=== PATIENT | female | born 1960 | race Caucasian/White ===

== ENCOUNTER 2018-12-13 14:40 | Inpatient (IN) ==
--- NOTE | 2018-12-13 14:45 | Emergency Department Note ---
Disposition Clinical Impression: Hyponatremia, Seizure, Alcoholism Breast cancer Qualifiers: Breast location: unspecified site of breast Estrogen receptor status: unspe cified Patient sex: female Laterality: unspecified laterality Qualified Code(s): C50.919 - Malignant neoplasm of unspecified site of unspecified female breast Disposition: Admitted As Inpatient Condition: Critical Forms: ED Satisfaction Letter Time of Disposition: 17:59 General Adult HPI - General Stated complaint: Weakness Time Seen by Provider: 12/13/18 14:43 Source: patient, family, EMS Mode of arrival: EMS Limitations: no limitations Nursing Notes Reviewed: Yes Vital Signs Reviewed: Yes - History of Present Illness HPI Narrative: 58F that is undergoing radiation for breast cancer that was last known well at 0400 this morning when her saw her, and now presents with possible seizure activity. Pt is talking. Pt was taken emergently to CT at 1445. - Related Data Home Medications Medication Instructions Recorded Confirmed Unable To Obtain [Unable to Obtain] 12/13/18 12/13/18 Allergies Allergy/AdvReac Type Severity Reaction Status Date / Time acetaminophen [From Vicodin] Allergy Rash Verified 12/13/18 19:16 codeine Allergy Rash Verified 12/13/18 19:16 hydrocodone [From Vicodin] Allergy Rash Verified 12/13/18 19:16 Limitations: ROS unobtainable due to patients medical condition Past Medical History - Past Medical History Medical history: Reports: cancer Surgical history: Reports: breast surgery - Social History Alcohol use: Reports: heavy Physical Exam General: A&O x 1 - to self only. Well developed, well nourished. Seems confused. Head: atraumatic, normocephalic. ENT: No conjunctival injection, no scleral icterus. PERRLA. EOMI. Oropharynx non- erythematous. mucous membranes tacky. Neuro: BUE/BLE Str 5/5. Pt cannot participate in neuro exam. Pulm: Lungs CTAB A/P. No wheezes, rales, ronchi. Cardio: RRR no m/r/g. Chest not tender to palpation. Abd: Soft, non-distended. Normoactive bowel sounds. Non-tender to palpation. No guarding. Non rigid. Extremities: Radial pulses 2+ duong, dorsalis pedis/posterior tibialis 2+ duong. No LE edema. No cyanosis, clubbing. Skin: warm, dry, intact. No rashes. Psych: pleasantly confused. Unable to assess further. Course Vital Signs Temperature 98.6 F 12/13/18 14:59 Pulse Rate 89 12/13/18 14:59 Respiratory Rate 18 12/13/18 14:59 Blood Pressure 170/145 12/13/18 14:59 O2 Sat by Pulse Oximetry 96 12/13/18 14:59 Temperature 98.6 F 12/13/18 14:59 Pulse Rate 85 12/13/18 17:30 Respiratory Rate 17 12/13/18 17:30 Blood Pressure 138/70 12/13/18 17:30 O2 Sat by Pulse Oximetry 96 12/13/18 17:30 Oxygen Delivery Oxygen Delivery Room Air Medical Decision Making - MDM Narrative Medical decision making narrative: 58F with breast cancer that presents for AMS that found when he got home at 1400 today. He notes that she was fine at 0400. He reports that she drinks approx 15 beers per day every night. He also reports that she may have had a seizure in the car on the way here and is not acting herself. We obtain a STAT head CT without contrast, and will obtain a sepsis workup. Pt's sodium is 104 which would explain both AMS and seizure. However, alcohol level was undetectable and pt's BP has been labile, which is consistent with DT's for autonomic instability. We will administer 150mL of 3% NaCl over [address] a central line. Central line was placed and environmental marketing representative Dr. Unger was consulted. He requested neurologic and nephrologic consult before he would accept admission. 174: Spoke with Dr. Acosta from neurology who did not have any further recommendations at the time but agreed to see the patient. 175: Spoke with Dr. Hassan from Nephrology who states: - If repeat sodium level at 1800 is coming up appropriately 1-2 points, then continue on hypertonic sodium at 30cc/hr - If repeat sodium has come up >5 hours, then stop hypertonic saline - Do Q1-2 hour sodium checks 1800: Spoke with Dr. Unger who agreed to accept the patient to the ICU. Pt was still awake and talking. Pt was stable at time of disposition. - Medical Records Medical records reviewed: Yes I reviewed the patient's medical records. - Lab Data Lab results reviewed: Yes I reviewed the patient's lab results. Result diagrams: 12/13/18 14:48 12/13/18 14:48 Lab Results 12/13/18 12/13/18 12/13/18 Range/Units 14:48 14:48 15:09 WBC 12.9 H (4.3-11.1) K/mcL RBC 4.85 (3.82-4.97) M/mcL Hgb 14.3 (11.5-15.4) g/dL Hct 40.3 (35.3-44.9) % MCV 83.1 (83.0-100.0) fL MCH 29.5 (28.0-33.3) pg MCHC 35.5 (31.6-35.5) g/dL RDW 13.2 (11.5-14.5) % Plt Count 537 H (140-400) K/mcL MPV 9.4 (9.4-12.4) fL Immature Gran % 1.8 (0-4) % Seg Neutrophils % 73.6 % Lymphocytes % 16.8 % Monocytes % 6.5 % Eosinophils % 0.5 % Basophils % 0.8 % Neutrophils # 9.5 H (1.6-8.9) K/mcL Lymphocytes # 2.2 (0.6-4.6) K/mcL Monocytes # 0.8 (0.0-1.3) K/mcL Eosinophils # 0.1 (0.0-0.6) K/mcL Basophils # 0.1 (0.0-0.2) K/mcL Sodium 104 L* (136-145) mEq/L Potassium 3.7 (3.5-5.1) mEq/L Chloride 74 L (98-107) mEq/L Carbon Dioxide 15 L (23-29) mEq/L BUN 16 (6-20) mg/dL Creatinine 1.46 H (0.60-1.20) mg/dL Est GFR ( Amer) 44 L (> 60) Est GFR (Non-Af Amer) 37 L (> 60) BUN/Creatinine Ratio 11 (6-26) Glucose 213 H (70-105) mg/dL Calculated Osmolality 226 L (280-300) Calcium 9.7 (8.6-10.3) mg/dL Phosphorus 4.0 (2.7-4.5) mg/dL Magnesium 1.7 (1.6-2.6) mg/dL Total Bilirubin 1.0 (0.3-1.0) mg/dL Direct Bilirubin 0.2 (0.0-0.2) mg/dL Indirect Bilirubin 0.8 (0.0-1.2) mg/dL AST 17 (13-39) Units/L ALT 12 (7-52) Units/L Alkaline Phosphatase 114 H (34-104) Units/L Serum Total Protein 7.3 (6.4-8.9) g/dL Albumin 4.1 (3.5-5.7) g/dL Globulin 3.2 (2.4-3.5) g/dL Albumin/Globulin Ratio 1.3 (1.1-2.2) Urine Color (Yellow) Urine Clarity (Clear) Urine pH (5.0-8.0) pH Units Ur Specific [place] (1.010-1.025) Urine Protein (Neg-Trace) mg/dL Urine Glucose (UA) (Normal) mg/dL Urine Ketones (Negative) mg/dL Urine Blood (Negative) Urine Nitrite (Negative) Urine Bilirubin (Negative) Urine Urobilinogen (Normal) mg/dL Ur Leukocyte Esterase (Negative) Urine Microscopic RBC (0-3) per hpf Urine Microscopic WBC (0-3) per hpf Ur Squamous Epith Cells (None-Few) per lpf Urine Bacteria (None-Few) per hpf Hyaline Casts (None-Few) per lpf Salicylates < 2.5 L (15.0-30.0) mg/dL Urine Opiates Screen Negative (Jkdfij=253) ng/mL Ur Buprenorphine Scrn Negative (Cutoff=5) ng/mL Acetaminophen < 10 L (10-20) mcg/mL Ur Barbiturates Screen Negative (Gvchzv=746) ng/mL Ur Phencyclidine Scrn Negative (Cutoff=25) ng/mL Ur Amphetamines Screen Negative (Oxosmz=8590) ng/mL U Benzodiazepines Scrn Negative (Ozwipf=752) ng/mL Urine Cocaine Screen Negative (Cutoff= 300) ng/mL U Marijuana (THC) Screen Negative (Cutoff = 50) ng/mL Ur Drug Screen Interp See Below Ethyl Alcohol < 10 (Less than 10) mg/dL 12/13/18 Range/Units 15:40 WBC (4.3-11.1) K/mcL RBC (3.82-4.97) M/mcL Hgb (11.5-15.4) g/dL Hct (35.3-44.9) % MCV (83.0-100.0) fL MCH (28.0-33.3) pg MCHC (31.6-35.5) g/dL RDW (11.5-14.5) % Plt Count (140-400) K/mcL MPV (9.4-12.4) fL Immature Gran % (0-4) % Seg Neutrophils % % Lymphocytes % % Monocytes % % Eosinophils % % Basophils % % Neutrophils # (1.6-8.9) K/mcL Lymphocytes # (0.6-4.6) K/mcL Monocytes # (0.0-1.3) K/mcL Eosinophils # (0.0-0.6) K/mcL Basophils # (0.0-0.2) K/mcL Sodium (136-145) mEq/L Potassium (3.5-5.1) mEq/L Chloride (98-107) mEq/L Carbon Dioxide (23-29) mEq/L BUN (6-20) mg/dL Creatinine (0.60-1.20) mg/dL Est GFR ( Amer) (> 60) Est GFR (Non-Af Amer) (> 60) BUN/Creatinine Ratio (6-26) Glucose (70-105) mg/dL Calculated Osmolality (280-300) Calcium (8.6-10.3) mg/dL Phosphorus (2.7-4.5) mg/dL Magnesium (1.6-2.6) mg/dL Total Bilirubin (0.3-1.0) mg/dL Direct Bilirubin (0.0-0.2) mg/dL Indirect Bilirubin (0.0-1.2) mg/dL AST (13-39) Units/L ALT (7-52) Units/L Alkaline Phosphatase (34-104) Units/L Serum Total Protein (6.4-8.9) g/dL Albumin (3.5-5.7) g/dL Globulin (2.4-3.5) g/dL Albumin/Globulin Ratio (1.1-2.2) Urine Color Yellow (Yellow) Urine Clarity Cloudy A (Clear) Urine pH 6.0 (5.0-8.0) pH Units Ur Specific [place] 1.009 L (1.010-1.025) Urine Protein Negative (Neg-Trace) mg/dL Urine Glucose (UA) Normal (Normal) mg/dL Urine Ketones Negative (Negative) mg/dL Urine Blood Small H (Negative) Urine Nitrite Negative (Negative) Urine Bilirubin Negative (Negative) Urine Urobilinogen Normal (Normal) mg/dL Ur Leukocyte Esterase Large H (Negative) Urine Microscopic RBC 0-3 (0-3) per hpf Urine Microscopic WBC TNTC H (0-3) per hpf Ur Squamous Epith Cells Few (None-Few) per lpf Urine Bacteria Many H (None-Few) per hpf Hyaline Casts None Seen (None-Few) per lpf Salicylates (15.0-30.0) mg/dL Urine Opiates Screen (Bezqlj=115) ng/mL Ur Buprenorphine Scrn (Cutoff=5) ng/mL Acetaminophen (10-20) mcg/mL Ur Barbiturates Screen (Dydpta=268) ng/mL Ur Phencyclidine Scrn (Cutoff=25) ng/mL Ur Amphetamines Screen (Grfcyf=8894) ng/mL U Benzodiazepines Scrn (Svkmnd=260) ng/mL Urine Cocaine Screen (Cutoff= 300) ng/mL U Marijuana (THC) Screen (Cutoff = 50) ng/mL Ur Drug Screen Interp Ethyl Alcohol (Less than 10) mg/dL - Radiology Data Radiology results reviewed: Yes I reviewed the patient's radiology results. Head CT 12/13/18 15:00 IMPRESSION: No acute intracranial abnormality. If patient's clinical symptomatology persists, MRI of the brain is recommended. D/ / 12/13/2018 15:09:35 Neel Yo MD / branden Interpreting Provider: Neel Yo MD - EKG Data EKG #1 EKG attestation: Yes I reviewed and interpreted this EKG. EKG results narrative: Heart rate 95, rhythm sinus, axis normal. Intervals within normal limits. There is baseline wander in lead 1, 2, 3, V5 and limits interpretation of study however there does not appear to be any ST segment elevation or depression. There is no old EKG available for comparison at the time of interpretation.
[2018-12-13] MEDS ORDERED: *HR* LORazepam 2 MG/ML VIAL IVP ONE (15:08)
[2018-12-13 15:27] LABS: Basophils # 0.1 K/mcL (0.0-0.2); Basophils % 0.8 %; Eosinophils # 0.1 K/mcL (0.0-0.6); Eosinophils % 0.5 %; Hematocrit 40.3 % (35.3-44.9); Hemoglobin 14.3 g/dL (11.5-15.4); Immature Granulocytes % 1.8 % (0-4); Lymphocytes # 2.2 K/mcL (0.6-4.6); Lymphocytes % 16.8 %; Mean Corpuscular HGB Conc 35.5 g/dL (31.6-35.5); Mean Corpuscular Hemoglobin 29.5 pg (28.0-33.3); Mean Corpuscular Volume 83.1 fL (83.0-100.0); Mean Platelet Volume 9.4 fL (9.4-12.4); Monocytes # 0.8 K/mcL (0.0-1.3); Monocytes % 6.5 %; Neutrophils # 9.5 K/mcL (1.6-8.9); Platelet Count 537 K/mcL (140-400); Red Blood Count 4.85 M/mcL (3.82-4.97); Red Cell Distribution Width 13.2 % (11.5-14.5); Segmented Neutrophils % 73.6 %; White Blood Count 12.9 K/mcL (4.3-11.1)
[2018-12-13 15:52] LABS: Acetaminophen < 10 mcg/mL (10-20); Alanine Aminotransferase 12 Units/L (7-52); Albumin 4.1 g/dL (3.5-5.7); Albumin/Globulin Ratio 1.3 (1.1-2.2); Alkaline Phosphatase 114 Units/L (34-104); Aspartate Amino Transferase 17 Units/L (13-39); BUN/Creatinine Ratio 11 (6-26); Bilirubin,Direct 0.2 mg/dL (0.0-0.2); Bilirubin,Indirect 0.8 mg/dL (0.0-1.2); Blood Urea Nitrogen 16 mg/dL (6-20); Calcium 9.7 mg/dL (8.6-10.3); Carbon Dioxide 15 mEq/L (23-29); Chloride 74 mEq/L (98-107); Ethanol < 10 mg/dL (Less than 10); Globulin 3.2 g/dL (2.4-3.5); Glucose 213 mg/dL (70-105); Magnesium 1.7 mg/dL (1.6-2.6); Osmolality,Calculated 226 (280-300); Potassium 3.7 mEq/L (3.5-5.1); Salicylate < 2.5 mg/dL (15.0-30.0); Sodium 104 mEq/L (136-145); Total Protein 7.3 g/dL (6.4-8.9); eGFR For African Americans 44 (> 60); eGFR For Non-African Americans 37 (> 60)
[2018-12-13] MEDS ORDERED: *HR* 3% Sodium Chloride 500 ML IV.SOLN IVC ONE ×2 (15:53)
[2018-12-13 16:01] LABS: Bilirubin,Urine Negative (Negative); Blood,Urine Small (Negative); Clarity,Urine Cloudy (Clear); Color,Urine Yellow (Yellow); Glucose,Urine (UA) Normal (Normal); Ketones,Urine Negative (Negative); Leukocyte Esterase,Urine Large (Negative); Nitrite,Urine Negative (Negative); Protein,Urine Negative (Neg-Trace); Specific Gravity,Urine 1.009 (1.010-1.025); Urobilinogen,Urine Normal (Normal)
[2018-12-13 16:04] LABS: Bacteria,Urine Many per hpf (None-Few); Hyaline Casts,Urine None Seen per lpf (None-Few); RBC,Urine 0-3 per hpf (0-3); Squamous Epithelial Cell,Urine Few per lpf (None-Few); WBC,Urine TNTC per hpf (0-3)
[2018-12-13 16:12] LABS: Amphetamine Screen,Urine Negative ng/mL (Cutoff=1000); Barbiturate Screen,Urine Negative ng/mL (Cutoff=200); Benzodiazepines Screen,Urine Negative ng/mL (Cutoff=200); Cannabinoid Screen,Urine Negative ng/mL (Cutoff = 50); Cocaine Screen,Urine Negative ng/mL (Cutoff= 300); Opiate Screen,Urine Negative ng/mL (Cutoff=300); Phencyclidine Screen,Urine Negative ng/mL (Cutoff=25)
--- NOTE | 2018-12-13 17:33 | Emergency Department Note ---
Disposition Clinical Impression: Hyponatremia, Seizure, Alcoholism, Breast cancer Disposition: Admitted As Inpatient Condition: Critical Referrals: NONE,PCP [Primary Care Provider] - Time of Disposition: 17:33 General Adult HPI - General Chief complaint: ED Neuro Symptoms/Deficit Stated complaint: Weakness Time Seen by Provider: 12/13/18 14:43 Source: patient, family, EMS Mode of arrival: EMS Limitations: no limitations - History of Present Illness Pain Scale: 0 - Related Data Home Medications Medication Instructions Recorded Confirmed Unable To Obtain [Unable to Obtain] 12/13/18 12/13/18 Allergies Allergy/AdvReac Type Severity Reaction Status Date / Time Unable to Assess Allergy Unverified 12/13/18 15:05 Past Medical History - Past Medical History Medical history: Reports: cancer Surgical history: Reports: breast surgery Psychiatric history: Reports: no psych history - Social History Smoking Status: Current every day smoker Smokeless Tobacco Status: No Alcohol use: Reports: heavy Drug use: Reports: none Physical Exam - General Limitations: no limitations General appearance: in distress Course Vital Signs Temperature 0 F L 12/13/18 14:59 Pulse Rate 89 12/13/18 14:59 Respiratory Rate 18 12/13/18 14:59 Blood Pressure 170/145 12/13/18 14:59 O2 Sat by Pulse Oximetry 96 12/13/18 14:59 Temperature 0 F L 12/13/18 14:59 Pulse Rate 96 12/13/18 16:30 Respiratory Rate 17 12/13/18 16:30 Blood Pressure 130/66 12/13/18 16:30 O2 Sat by Pulse Oximetry 96 12/13/18 16:30 Oxygen Delivery Oxygen Delivery Room Air Medical Decision Making - Lab Data Result diagrams: 12/13/18 14:48 12/13/18 14:48 Lab Results 12/13/18 12/13/18 12/13/18 Range/Units 14:48 14:48 15:09 WBC 12.9 H (4.3-11.1) K/mcL RBC 4.85 (3.82-4.97) M/mcL Hgb 14.3 (11.5-15.4) g/dL Hct 40.3 (35.3-44.9) % MCV 83.1 (83.0-100.0) fL MCH 29.5 (28.0-33.3) pg MCHC 35.5 (31.6-35.5) g/dL RDW 13.2 (11.5-14.5) % Plt Count 537 H (140-400) K/mcL MPV 9.4 (9.4-12.4) fL Immature Gran % 1.8 (0-4) % Seg Neutrophils % 73.6 % Lymphocytes % 16.8 % Monocytes % 6.5 % Eosinophils % 0.5 % Basophils % 0.8 % Neutrophils # 9.5 H (1.6-8.9) K/mcL Lymphocytes # 2.2 (0.6-4.6) K/mcL Monocytes # 0.8 (0.0-1.3) K/mcL Eosinophils # 0.1 (0.0-0.6) K/mcL Basophils # 0.1 (0.0-0.2) K/mcL Sodium 104 L* (136-145) mEq/L Potassium 3.7 (3.5-5.1) mEq/L Chloride 74 L (98-107) mEq/L Carbon Dioxide 15 L (23-29) mEq/L BUN 16 (6-20) mg/dL Creatinine 1.46 H (0.60-1.20) mg/dL Est GFR ( Amer) 44 L (> 60) Est GFR (Non-Af Amer) 37 L (> 60) BUN/Creatinine Ratio 11 (6-26) Glucose 213 H (70-105) mg/dL Calculated Osmolality 226 L (280-300) Calcium 9.7 (8.6-10.3) mg/dL Phosphorus 4.0 (2.7-4.5) mg/dL Magnesium 1.7 (1.6-2.6) mg/dL Total Bilirubin 1.0 (0.3-1.0) mg/dL Direct Bilirubin 0.2 (0.0-0.2) mg/dL Indirect Bilirubin 0.8 (0.0-1.2) mg/dL AST 17 (13-39) Units/L ALT 12 (7-52) Units/L Alkaline Phosphatase 114 H (34-104) Units/L Serum Total Protein 7.3 (6.4-8.9) g/dL Albumin 4.1 (3.5-5.7) g/dL Globulin 3.2 (2.4-3.5) g/dL Albumin/Globulin Ratio 1.3 (1.1-2.2) Urine Color (Yellow) Urine Clarity (Clear) Urine pH (5.0-8.0) pH Units Ur Specific [place] (1.010-1.025) Urine Protein (Neg-Trace) mg/dL Urine Glucose (UA) (Normal) mg/dL Urine Ketones (Negative) mg/dL Urine Blood (Negative) Urine Nitrite (Negative) Urine Bilirubin (Negative) Urine Urobilinogen (Normal) mg/dL Ur Leukocyte Esterase (Negative) Urine Microscopic RBC (0-3) per hpf Urine Microscopic WBC (0-3) per hpf Ur Squamous Epith Cells (None-Few) per lpf Urine Bacteria (None-Few) per hpf Hyaline Casts (None-Few) per lpf Salicylates < 2.5 L (15.0-30.0) mg/dL Urine Opiates Screen Negative (Eiksyq=880) ng/mL Ur Buprenorphine Scrn Negative (Cutoff=5) ng/mL Acetaminophen < 10 L (10-20) mcg/mL Ur Barbiturates Screen Negative (Vpjnwc=996) ng/mL Ur Phencyclidine Scrn Negative (Cutoff=25) ng/mL Ur Amphetamines Screen Negative (Zxemhj=1080) ng/mL U Benzodiazepines Scrn Negative (Iyfzbz=369) ng/mL Urine Cocaine Screen Negative (Cutoff= 300) ng/mL U Marijuana (THC) Screen Negative (Cutoff = 50) ng/mL Ur Drug Screen Interp See Below Ethyl Alcohol < 10 (Less than 10) mg/dL 12/13/18 Range/Units 15:40 WBC (4.3-11.1) K/mcL RBC (3.82-4.97) M/mcL Hgb (11.5-15.4) g/dL Hct (35.3-44.9) % MCV (83.0-100.0) fL MCH (28.0-33.3) pg MCHC (31.6-35.5) g/dL RDW (11.5-14.5) % Plt Count (140-400) K/mcL MPV (9.4-12.4) fL Immature Gran % (0-4) % Seg Neutrophils % % Lymphocytes % % Monocytes % % Eosinophils % % Basophils % % Neutrophils # (1.6-8.9) K/mcL Lymphocytes # (0.6-4.6) K/mcL Monocytes # (0.0-1.3) K/mcL Eosinophils # (0.0-0.6) K/mcL Basophils # (0.0-0.2) K/mcL Sodium (136-145) mEq/L Potassium (3.5-5.1) mEq/L Chloride (98-107) mEq/L Carbon Dioxide (23-29) mEq/L BUN (6-20) mg/dL Creatinine (0.60-1.20) mg/dL Est GFR ( Amer) (> 60) Est GFR (Non-Af Amer) (> 60) BUN/Creatinine Ratio (6-26) Glucose (70-105) mg/dL Calculated Osmolality (280-300) Calcium (8.6-10.3) mg/dL Phosphorus (2.7-4.5) mg/dL Magnesium (1.6-2.6) mg/dL Total Bilirubin (0.3-1.0) mg/dL Direct Bilirubin (0.0-0.2) mg/dL Indirect Bilirubin (0.0-1.2) mg/dL AST (13-39) Units/L ALT (7-52) Units/L Alkaline Phosphatase (34-104) Units/L Serum Total Protein (6.4-8.9) g/dL Albumin (3.5-5.7) g/dL Globulin (2.4-3.5) g/dL Albumin/Globulin Ratio (1.1-2.2) Urine Color Yellow (Yellow) Urine Clarity Cloudy A (Clear) Urine pH 6.0 (5.0-8.0) pH Units Ur Specific [place] 1.009 L (1.010-1.025) Urine Protein Negative (Neg-Trace) mg/dL Urine Glucose (UA) Normal (Normal) mg/dL Urine Ketones Negative (Negative) mg/dL Urine Blood Small H (Negative) Urine Nitrite Negative (Negative) Urine Bilirubin Negative (Negative) Urine Urobilinogen Normal (Normal) mg/dL Ur Leukocyte Esterase Large H (Negative) Urine Microscopic RBC 0-3 (0-3) per hpf Urine Microscopic WBC TNTC H (0-3) per hpf Ur Squamous Epith Cells Few (None-Few) per lpf Urine Bacteria Many H (None-Few) per hpf Hyaline Casts None Seen (None-Few) per lpf Salicylates (15.0-30.0) mg/dL Urine Opiates Screen (Ykuvyw=523) ng/mL Ur Buprenorphine Scrn (Cutoff=5) ng/mL Acetaminophen (10-20) mcg/mL Ur Barbiturates Screen (Urtdeq=194) ng/mL Ur Phencyclidine Scrn (Cutoff=25) ng/mL Ur Amphetamines Screen (Corieh=4891) ng/mL U Benzodiazepines Scrn (Uhczzv=423) ng/mL Urine Cocaine Screen (Cutoff= 300) ng/mL U Marijuana (THC) Screen (Cutoff = 50) ng/mL Ur Drug Screen Interp Ethyl Alcohol (Less than 10) mg/dL Attestation Statement - Attestation Attestation: I examined this patient and my medical decision-making was reviewed with the Resident Physician. I agree with the documented findings, disposition and treatment plan as described except to the extent set forth below. Breast cancer patient who is an alcoholic and drank all last night. Seized on the way here, describes a tonic-clonic seizure very well. Was significantly postictal in triage, rapidly improving emergency department, but was still altered. Sodium is noted to be 104. Hypertonic saline ordered. I was present for the resident's EKG interpretation, present and available for the central line placement. Patient admitted to the ICU. Critical care time: I was directly primarily involved in the care of this patie nt for 35 minutes excluding procedures.
--- NOTE | 2018-12-13 19:50 | Emergency Department Note ---
Disposition Clinical Impression: Hyponatremia, Seizure, Alcoholism Breast cancer Qualifiers: Breast location: unspecified site of breast Estrogen receptor status: unspe cified Patient sex: female Laterality: unspecified laterality Qualified Code(s): C50.919 - Malignant neoplasm of unspecified site of unspecified female breast Disposition: Admitted As Inpatient Condition: Critical Time of Disposition: 19:58 General Adult HPI - General Chief complaint: ED Neuro Symptoms/Deficit Stated complaint: Weakness Time Seen by Provider: 12/13/18 14:43 Source: patient, family, EMS Mode of arrival: EMS Limitations: no limitations - History of Present Illness HPI Narrative: Resident procedure note only Pain Scale: 0 - Related Data Home Medications Medication Instructions Recorded Confirmed Unable To Obtain [Unable to Obtain] 12/13/18 12/13/18 Allergies Allergy/AdvReac Type Severity Reaction Status Date / Time acetaminophen [From Vicodin] Allergy Rash Verified 12/13/18 19:16 codeine Allergy Rash Verified 12/13/18 19:16 hydrocodone [From Vicodin] Allergy Rash Verified 12/13/18 19:16 Past Medical History - Past Medical History Medical history: Reports: cancer Surgical history: Reports: breast surgery Psychiatric history: Reports: anxiety, depression - Social History Smoking Status: Current every day smoker Smokeless Tobacco Status: No Alcohol use: Reports: heavy Drug use: Reports: none Physical Exam - General Limitations: no limitations General appearance: in distress Course Vital Signs Temperature 98.6 F 12/13/18 14:59 Pulse Rate 89 12/13/18 14:59 Respiratory Rate 18 12/13/18 14:59 Blood Pressure 170/145 12/13/18 14:59 O2 Sat by Pulse Oximetry 96 12/13/18 14:59 Temperature 98.6 F 12/13/18 14:59 Pulse Rate 85 12/13/18 17:30 Respiratory Rate 17 12/13/18 17:30 Blood Pressure 138/70 12/13/18 17:30 O2 Sat by Pulse Oximetry 96 12/13/18 17:30 Oxygen Delivery Oxygen Delivery Room Air Procedures - Central Line Placement Right IJ Central Line Insertion: emergent Consent Obtained: verbal consent Procedural Pause: verify patient name and date of , timeout performed per policy, anna and assess the site, assemble equipment and verify supplies, perform hand hygiene Patient Placed on Monitor/Pulse Ox: Yes During the Procedure: clinician is wearing sterile gloves, cap, mask,& gown during insertion, sterile field and sterile technique are maintained, patient's face is covered with drape or mask and wearing a cap, everyone in room is wearing a mask Central Line Prep: Chlorhexidine scrub, sterile drapes applied Prep the Procedure Site: apply chloraprep to the skin using a back and forth scrubbing motion, apply chloraprep for 30 seconds (upper body), 1-2 min (femoral sites), allow prep to dry, drape the patient with a full body drape Local Anesthetic: lidocaine 1% Amount of anesthesia used (mL): 6 Ultrasound Used for Placement: Yes Central Line Lumen Inserted: triple Post Procedure: sutured in place, good blood return, all ports aspirated, flushed, capped, sterile dressing applied, guide wire removed and visualized, dressing is dated Post Procedure X-Ray: tip of catheter in good position Patient Tolerated Procedure: well Complications: none Name of Clinician Inserting Central Line: Felipe Meredith DO Clinician Assisting/Completing Checklist: Deangelo Ballesteros Date: 12/13/18 Time: 19:57 Medical Decision Making - Lab Data Result diagrams: 12/13/18 14:48 12/13/18 14:48 Lab Results 12/13/18 12/13/18 12/13/18 Range/Units 14:48 14:48 15:09 WBC 12.9 H (4.3-11.1) K/mcL RBC 4.85 (3.82-4.97) M/mcL Hgb 14.3 (11.5-15.4) g/dL Hct 40.3 (35.3-44.9) % MCV 83.1 (83.0-100.0) fL MCH 29.5 (28.0-33.3) pg MCHC 35.5 (31.6-35.5) g/dL RDW 13.2 (11.5-14.5) % Plt Count 537 H (140-400) K/mcL MPV 9.4 (9.4-12.4) fL Immature Gran % 1.8 (0-4) % Seg Neutrophils % 73.6 % Lymphocytes % 16.8 % Monocytes % 6.5 % Eosinophils % 0.5 % Basophils % 0.8 % Neutrophils # 9.5 H (1.6-8.9) K/mcL Lymphocytes # 2.2 (0.6-4.6) K/mcL Monocytes # 0.8 (0.0-1.3) K/mcL Eosinophils # 0.1 (0.0-0.6) K/mcL Basophils # 0.1 (0.0-0.2) K/mcL Sodium 104 L* (136-145) mEq/L Potassium 3.7 (3.5-5.1) mEq/L Chloride 74 L (98-107) mEq/L Carbon Dioxide 15 L (23-29) mEq/L BUN 16 (6-20) mg/dL Creatinine 1.46 H (0.60-1.20) mg/dL Est GFR ( Amer) 44 L (> 60) Est GFR (Non-Af Amer) 37 L (> 60) BUN/Creatinine Ratio 11 (6-26) Glucose 213 H (70-105) mg/dL Calculated Osmolality 226 L (280-300) Calcium 9.7 (8.6-10.3) mg/dL Phosphorus 4.0 (2.7-4.5) mg/dL Magnesium 1.7 (1.6-2.6) mg/dL Total Bilirubin 1.0 (0.3-1.0) mg/dL Direct Bilirubin 0.2 (0.0-0.2) mg/dL Indirect Bilirubin 0.8 (0.0-1.2) mg/dL AST 17 (13-39) Units/L ALT 12 (7-52) Units/L Alkaline Phosphatase 114 H (34-104) Units/L Serum Total Protein 7.3 (6.4-8.9) g/dL Albumin 4.1 (3.5-5.7) g/dL Globulin 3.2 (2.4-3.5) g/dL Albumin/Globulin Ratio 1.3 (1.1-2.2) Urine Color (Yellow) Urine Clarity (Clear) Urine pH (5.0-8.0) pH Units Ur Specific [place] (1.010-1.025) Urine Protein (Neg-Trace) mg/dL Urine Glucose (UA) (Normal) mg/dL Urine Ketones (Negative) mg/dL Urine Blood (Negative) Urine Nitrite (Negative) Urine Bilirubin (Negative) Urine Urobilinogen (Normal) mg/dL Ur Leukocyte Esterase (Negative) Urine Microscopic RBC (0-3) per hpf Urine Microscopic WBC (0-3) per hpf Ur Squamous Epith Cells (None-Few) per lpf Urine Bacteria (None-Few) per hpf Hyaline Casts (None-Few) per lpf Salicylates < 2.5 L (15.0-30.0) mg/dL Urine Opiates Screen Negative (Yifdzw=899) ng/mL Ur Buprenorphine Scrn Negative (Cutoff=5) ng/mL Acetaminophen < 10 L (10-20) mcg/mL Ur Barbiturates Screen Negative (Lpaxgx=098) ng/mL Ur Phencyclidine Scrn Negative (Cutoff=25) ng/mL Ur Amphetamines Screen Negative (Cipopg=2205) ng/mL U Benzodiazepines Scrn Negative (Smiuoh=709) ng/mL Urine Cocaine Screen Negative (Cutoff= 300) ng/mL U Marijuana (THC) Screen Negative (Cutoff = 50) ng/mL Ur Drug Screen Interp See Below Ethyl Alcohol < 10 (Less than 10) mg/dL 12/13/18 Range/Units 15:40 WBC (4.3-11.1) K/mcL RBC (3.82-4.97) M/mcL Hgb (11.5-15.4) g/dL Hct (35.3-44.9) % MCV (83.0-100.0) fL MCH (28.0-33.3) pg MCHC (31.6-35.5) g/dL RDW (11.5-14.5) % Plt Count (140-400) K/mcL MPV (9.4-12.4) fL Immature Gran % (0-4) % Seg Neutrophils % % Lymphocytes % % Monocytes % % Eosinophils % % Basophils % % Neutrophils # (1.6-8.9) K/mcL Lymphocytes # (0.6-4.6) K/mcL Monocytes # (0.0-1.3) K/mcL Eosinophils # (0.0-0.6) K/mcL Basophils # (0.0-0.2) K/mcL Sodium (136-145) mEq/L Potassium (3.5-5.1) mEq/L Chloride (98-107) mEq/L Carbon Dioxide (23-29) mEq/L BUN (6-20) mg/dL Creatinine (0.60-1.20) mg/dL Est GFR ( Amer) (> 60) Est GFR (Non-Af Amer) (> 60) BUN/Creatinine Ratio (6-26) Glucose (70-105) mg/dL Calculated Osmolality (280-300) Calcium (8.6-10.3) mg/dL Phosphorus (2.7-4.5) mg/dL Magnesium (1.6-2.6) mg/dL Total Bilirubin (0.3-1.0) mg/dL Direct Bilirubin (0.0-0.2) mg/dL Indirect Bilirubin (0.0-1.2) mg/dL AST (13-39) Units/L ALT (7-52) Units/L Alkaline Phosphatase (34-104) Units/L Serum Total Protein (6.4-8.9) g/dL Albumin (3.5-5.7) g/dL Globulin (2.4-3.5) g/dL Albumin/Globulin Ratio (1.1-2.2) Urine Color Yellow (Yellow) Urine Clarity Cloudy A (Clear) Urine pH 6.0 (5.0-8.0) pH Units Ur Specific [place] 1.009 L (1.010-1.025) Urine Protein Negative (Neg-Trace) mg/dL Urine Glucose (UA) Normal (Normal) mg/dL Urine Ketones Negative (Negative) mg/dL Urine Blood Small H (Negative) Urine Nitrite Negative (Negative) Urine Bilirubin Negative (Negative) Urine Urobilinogen Normal (Normal) mg/dL Ur Leukocyte Esterase Large H (Negative) Urine Microscopic RBC 0-3 (0-3) per hpf Urine Microscopic WBC TNTC H (0-3) per hpf Ur Squamous Epith Cells Few (None-Few) per lpf Urine Bacteria Many H (None-Few) per hpf Hyaline Casts None Seen (None-Few) per lpf Salicylates (15.0-30.0) mg/dL Urine Opiates Screen (Hnaegm=926) ng/mL Ur Buprenorphine Scrn (Cutoff=5) ng/mL Acetaminophen (10-20) mcg/mL Ur Barbiturates Screen (Rogomn=332) ng/mL Ur Phencyclidine Scrn (Cutoff=25) ng/mL Ur Amphetamines Screen (Wnuwgf=6831) ng/mL U Benzodiazepines Scrn (Citwxt=653) ng/mL Urine Cocaine Screen (Cutoff= 300) ng/mL U Marijuana (THC) Screen (Cutoff = 50) ng/mL Ur Drug Screen Interp Ethyl Alcohol (Less than 10) mg/dL
[2018-12-13] MEDS ORDERED: *HR* LORazepam 2 MG/ML VIAL IVP PRN (20:00)
--- NOTE | 2018-12-13 20:06 | Internal Med History&Physical ---
Date of Encounter: 12/14/18 Time of Encounter: 20:02 Internal Medicine - H&P: HPI Chief complaint: Confusion, encephalopathy Admitted From: Home Plans for Post Hospital Care: Home History of present illness: Ms. Onur Morrison is a 58 year old female with past medical history of alcohol abuse, hypertension, class III obesity presented to the ED by family due to confusion. Patient is a poor historian and history was obtained with help of family and chart reviewed. Patient reported drinking at least 15, 12 ounce beer daily,mostly around the night in addition to drinking lots of water and taking a blood pressure medication which the states hydrochlorothiazide. Patient today was noted to be confused suddenyl gradual worsening as constant with no alleviating or exacerbating factor in association of seizures incontinence fever chills nausea or vomiting chest pain shortness of breath. Patient was standing looking at a small hole in the wall and playing with it which is very unusual to her baseline which her baseline is able to do independently all ADLs. Patient admitted to breast surgery status post radiation with 3 follow-up with oncology for possible chemotherapy depending on response. Patient denies smoking, drugs. No family history of coronary disease. Personally reviewed patient's past med ical, surgical, family and social history. Face to face encounter occurred on 12/14/2018 . CODE STATUS reviewed and is full code. Past Med Surg Social Fam HX - Past Medical History Medical history: cancer Additional medical history: breast cancer Psychiatric history: anxiety, depression - Past Surgical History Surgical History: breast surgery - Social History Smoking Status: Current every day smoker Packs per day: 2 Smokeless Tobacco Status: No Alcohol use: heavy Drug use: none Internal Medicine - H&P: Meds Budesonide/Formoterol 80/4.5 [Symbicort 80/4.5] 2 puff IH BID 12/13/18 [History] Buspirone HCl [Buspar] 10 mg PO TID 12/13/18 [History] Fluconazole [Diflucan] 100 mg PO DAILY 12/13/18 [History] Lisinopril-HCTZ 20-12.5 [Prinzide 20-12.5] 1 tab PO DAILY 12/13/18 [History] Sertraline [Zoloft] 100 mg PO DAILY 12/13/18 [History] hydrOXYzine HCl [Hydroxyzine HCl] 25 mg PO TID PRN 12/13/18 [History] Allergy/AdvReac Type Severity Reaction Status Date / Time acetaminophen [From Vicodin] Allergy Rash Verified 12/13/18 19:16 codeine Allergy Hives Verified 12/13/18 21:36 hydrocodone [From Vicodin] Allergy Rash Verified 12/13/18 19:16 ibuprofen AdvReac Nausea Verified 12/13/18 21:36 All Systems PM: A 10-system review of systems was performed and is negative for pertinent findings except as documented above in the HPI. Review of systems: General: No unintentional weightloss, No fever Head: No headahce, No injury. Ears: No discharge, No earache Eyes: No drainage, No eye pain Mouth and Throat: No new ulcers, No pain Nose and Sinus: No new congestion, No pain, Respiratory: No cough, No sputum production, No dyspnea Cardiovascular: No chest pain, No palpitations. Gastrointestinal: No nausea, No vomiting. No abdominal pain. Genital Tract: No discharge, No pain Urinary Tract: No dysuria, No discharge. MSK: No new/worsening joint pain, No new/worsening muscle ache. Endocrine: No cold intolerance, No polyuria Psychological: No suicidal, No homocidal ideation. - Constitutional Vitals: Temp Pulse Resp BP Pulse Ox 98.6 F 85 17 138/70 96 12/13/18 14:59 12/13/18 17:30 12/13/18 17:30 12/13/18 17:30 12/13/18 17:30 Exam: General Appearance: Appearing as age, well-nourished in mild acute distress. Head: Atraumatic normocephalic Skin: Normal texture, normal turgor, warm, dry. Moist mucous membranes, no JVD Eyes: Conjunctivae not pale with no erythema, drainage, or ulcers. Anicteric. Neck: No thyromegaly, masses or ulcers. Trachea midline. Heart: RRR, no murmurs. Capillary refill 3 seconds Lungs: No accessory muscle usage, lungs clear to auscultation bilaterally, no wheezes or crackles. Extremities: No pitting edema, No clubbing, No cyanosis. Abdomen: Non-distended, normoactive bowel sounds. non-tender to palpation, no hepatomegally. No guarding. Neuro: AOx3 with no new sensory loss or focal deficits. MSK: Strength 5/5 Upper extremity equal bilaterally. Strength 5/5 Lower extremity equal bilaterally Internal Med - H&P Results - Labs CBC & Chem 7: 12/14/18 04:05 12/14/18 04:05 Labs: Short CBC 12/13/18 Range/Units 14:48 WBC 12.9 H (4.3-11.1) K/mcL Hgb 14.3 (11.5-15.4) g/dL Hct 40.3 (35.3-44.9) % Plt Count 537 H (140-400) K/mcL Neutrophils # 9.5 H (1.6-8.9) K/mcL BMP 12/13/18 14:48 Sodium 104 L* Potassium 3.7 Chloride 74 L Carbon Dioxide 15 L BUN 16 Creatinine 1.46 H Glucose 213 H Calcium 9.7 Liver Function 12/13/18 Range/Units 14:48 Total Bilirubin 1.0 (0.3-1.0) mg/dL Direct Bilirubin 0.2 (0.0-0.2) mg/dL AST 17 (13-39) Units/L ALT 12 (7-52) Units/L Alkaline Phosphatase 114 H (34-104) Units/L Albumin 4.1 (3.5-5.7) g/dL Urine 12/13/18 Range/Units 15:40 Urine Color Yellow (Yellow) Urine Clarity Cloudy A (Clear) Urine pH 6.0 (5.0-8.0) pH Units Ur Specific [place] 1.009 L (1.010-1.025) Urine Protein Negative (Neg-Trace) mg/dL Urine Glucose (UA) Normal (Normal) mg/dL - Impressions ITS Impressions Head CT 12/13/18 15:00 IMPRESSION: No acute intracranial abnormality. If patient's clinical symptomatology persists, MRI of the brain is recommended. D/ / 12/13/2018 15:09:35 Neel Yo MD / branden Interpreting Provider: Neel Yo MD Chest X-Ray 12/13/18 19:18 IMPRESSION: Right IJ line with the tip of the catheter in lower SVC. No airspace consolidation. D/ / Wilfredo Knight / Wilfredo Knight Interpreting Provider: Wilfredo Knight - Summary of Assessment and Plan Summary of Assessment and Plan: 1.Severe symptomatic hyponatremia: Patient has had a seizure while in the ED. Etiology multifactorial 2/2 beer protomania, Diuretics, and primary Polydipsia. Nephrology contacted appreciate recommendation. 3% normal saline was given bolus in the ED. Recheck showed to be 111 from 104. Held and stopped fluids. Patient continued to increase slowly without any fluids and resulted 114 from 112. Patient was given 1 D5W 250 ml bolus and continued to be at 114. Patient was given another 2 boluses of 250 ml of D5W with recheck pending. Nephrology on board and was contacted during the night. BMP every 2 hours. Goal Na is 110-112. 2.Etoh abuse, Ciwa protocol with banana bag. No history of DT 3.LIV: Unclear etiology. Urine lytes ordered. Chronic medical disease: HTN: held diuretics. Depression: continue home med. DVT prophylaxis: Heparin Disposition: Likely > 2 day stay. - Time Spent With Patient Total time spent is greater than 40 minutes 50% in coordination of care (as documented) at patient's floor/unit and/or counseling patient: Greater than 35 minutes
[2018-12-13 20:23] LABS: Calcium 9.4 mg/dL (8.6-10.3); Magnesium 1.9 mg/dL (1.6-2.6); Phosphorous 3.3 mg/dL (2.7-4.5); Potassium 3.5 mEq/L (3.5-5.1)
[2018-12-13 20:49] LABS: Sodium, Urine 17.5 mEq/L
[2018-12-13 21:29] LABS: Calcium 9.4 mg/dL (8.6-10.3); Potassium 3.5 mEq/L (3.5-5.1)
[2018-12-14 00:30] LABS: BUN/Creatinine Ratio 14 (6-26); Blood Urea Nitrogen 15 mg/dL (6-20); Calcium 9.5 mg/dL (8.6-10.3); Carbon Dioxide 24 mEq/L (23-29); Chloride 80 mEq/L (98-107); Glucose 133 mg/dL (70-105); Osmolality,Calculated 237 (280-300); Potassium 3.5 mEq/L (3.5-5.1); Sodium 112 mEq/L (136-145); eGFR For African Americans > 60 (> 60); eGFR For Non-African Americans 51 (> 60)
[2018-12-14 02:46] LABS: Calcium 9.6 mg/dL (8.6-10.3); Potassium 3.9 mEq/L (3.5-5.1)
[2018-12-14] MEDS: D5% in Water 250 ML IVC SCH ×4 (02:56→05:07)
[2018-12-14 04:32] LABS: Basophils # 0.1 K/mcL (0.0-0.2); Basophils % 0.5 %; Eosinophils # 0.1 K/mcL (0.0-0.6); Eosinophils % 0.6 %; Hematocrit 38.4 % (35.3-44.9); Hemoglobin 13.8 g/dL (11.5-15.4); Immature Granulocytes % 1.1 % (0-4); Lymphocytes # 2.1 K/mcL (0.6-4.6); Lymphocytes % 17.1 %; Mean Corpuscular HGB Conc 35.9 g/dL (31.6-35.5); Mean Corpuscular Hemoglobin 29.1 pg (28.0-33.3); Mean Corpuscular Volume 80.8 fL (83.0-100.0); Mean Platelet Volume 8.8 fL (9.4-12.4); Monocytes # 1.1 K/mcL (0.0-1.3); Monocytes % 8.8 %; Platelet Count 526 K/mcL (140-400); Red Blood Count 4.75 M/mcL (3.82-4.97); Red Cell Distribution Width 13.2 % (11.5-14.5); Segmented Neutrophils % 71.9 %; White Blood Count 12.5 K/mcL (4.3-11.1)
[2018-12-14 04:34] LABS: VBG HCO3 25 mEq/L (21-27); VBG PCO2 40 mmHg (41-51); VBG PH 7.41 pH Units (7.32-7.42); VBG PO2 115 mmHg (25-50)
[2018-12-14 04:42] LABS: Calcium 9.5 mg/dL (8.6-10.3); Potassium 3.5 mEq/L (3.5-5.1)
[2018-12-14] MEDS ORDERED: D5% in Water 1,000 ML IVC SCH ×2 (05:15→11:53)
[2018-12-14] MEDS ORDERED: Nicotine 21 MG PATCH.TD24 TD PRN (07:26)
[2018-12-14 07:32] LABS: Calcium 9.3 mg/dL (8.6-10.3); Potassium 3.3 mEq/L (3.5-5.1)
[2018-12-14 07:51] LABS: Thyroid Stimulating Hormone 3.473 mcIU/mL (0.340-5.600)
[2018-12-14] MEDS ORDERED: Beer can PO SCH (08:00)
[2018-12-14 08:49] LABS: BUN/Creatinine Ratio 14 (6-26); Blood Urea Nitrogen 15 mg/dL (6-20); Calcium 9.2 mg/dL (8.6-10.3); Carbon Dioxide 26 mEq/L (23-29); Chloride 82 mEq/L (98-107); Glucose 128 mg/dL (70-105); Osmolality,Calculated 240 (280-300); Potassium 3.6 mEq/L (3.5-5.1); Sodium 114 mEq/L (136-145); eGFR For African Americans > 60 (> 60); eGFR For Non-African Americans 50 (> 60)
[2018-12-14] MEDS: Folic Acid 1 MG TABLET PO SCH (08:49)
[2018-12-14] MEDS: Thiamine (B-1) 100 MG TABLET PO SCH (08:49)
[2018-12-14] MEDS: Vitamin B Complex/Vit C/Vit E 1 EACH TABLET PO SCH (08:49)
[2018-12-14] MEDS: *HR* Heparin 5,000 UNIT/ML VIAL SQ SCH ×2 (08:49→16:29)
[2018-12-14] MEDS: Beer can PO SCH ×2 (08:50→16:29)
[2018-12-14 10:46] LABS: BUN/Creatinine Ratio 15 (6-26); Blood Urea Nitrogen 11 mg/dL (6-20); Calcium 6.3 mg/dL (8.6-10.3); Carbon Dioxide 19 mEq/L (23-29); Chloride 99 mEq/L (98-107); Glucose 99 mg/dL (70-105); Osmolality,Calculated 257 (280-300); Potassium 2.6 mEq/L (3.5-5.1); Sodium 124 mEq/L (136-145); eGFR For African Americans > 60 (> 60); eGFR For Non-African Americans > 60 (> 60)
--- NOTE | 2018-12-14 11:08 | Neurology - Consult Note ---
Date of Encounter: 12/14/18 Time of Encounter: 11:04 Assessment and Plan (1) Seizure Current Visit: Yes Status: Acute No prior history of epilepsy. Current confusion and seizures likely provoked by severe hyponatremia and history of alcoholism and withdrawal. Symptoms appear significant improved with medical treatment. Agree with medical treatment for hyponatremia only and no need for antiepileptic therapy at this time. Treat breakthrough seizure with benzodiazepam prn. Continue medical and supportive care and DT prophylaxis recommended. History of Present Illness Chief complaint: seizure and confusion HPI: Ms. Onur Morrison is a 58 year old female with PMH significant for alcoholism, breast cancer, s/p radiation therapy, polythycemia, HTNwho developed acute onset of confusion and seizure activity yesterday prior to admission. Witnessed that the patient suddenly stiffened up and having tonic clonic activity and lost her consciousness. NO prior history of seizures. Has chronic alcoholism and in ER alcohol level as less than 10. Found to have severe hyponatremia 112. Patient was treated in ICU and overnight no recurrent seizure noted. Treating with benzo prn for breakthrough seizure but overnight mental status significantly improved. No prior history of seizure disorder Past Med Surg Social Fam HX - Past Medical History Medical history: cancer Additional medical history: breast cancer Psychiatric history: anxiety, depression - Past Surgical History Surgical History: breast surgery - Social History Smoking Status: Current every day smoker Packs per day: 2 Smokeless Tobacco Status: No Alcohol use: heavy Drug use: none Medications and Allergies RX: Budesonide/Formoterol 80/4.5 [Symbicort 80/4.5] 2 puff IH BID 12/13/18 [History] RX: Buspirone HCl [Buspar] 10 mg PO TID 12/13/18 [History] RX: Fluconazole [Diflucan] 100 mg PO DAILY 12/13/18 [History] RX: Lisinopril-HCTZ 20-12.5 [Prinzide 20-12.5] 1 tab PO DAILY 12/13/18 [History] RX: Sertraline [Zoloft] 100 mg PO DAILY 12/13/18 [History] hydrOXYzine HCl [Hydroxyzine HCl] 25 mg PO TID PRN 12/13/18 [History] Allergy/AdvReac Type Severity Reaction Status Date / Time acetaminophen [From Vicodin] Allergy Rash Verified 12/13/18 19:16 codeine Allergy Hives Verified 12/13/18 21:36 hydrocodone [From Vicodin] Allergy Rash Verified 12/13/18 19:16 ibuprofen AdvReac Nausea Verified 12/13/18 21:36 All Systems: The remainder of the systems were reviewed and are negative - Constitutional Constitutional ROS IM: chills (yes), excessive sweating (yes) - Nose, Mouth, Throat Nose, mouth and throat: abnormal hearing (no), dysphagia (no) - Cardiovascular Cardiovascular ROS IM: chest pain (no), chest pain at rest (no) - Respiratory Respiratory IM: cough (no) - Gastrointestinal Gastrointestinal: abdominal pain (no) - Musculoskeletal Musculoskeletal ROS IM: abnormal gait (no) - Neurological Neurological ROS: confusion (yes), convulsions (yes) - Psychiatric Psychiatric general PM: abnormal sleep pattern (no) - Endocrine Endocrine IM: change in body appearance (no) Physical Examination - Vital Signs Vital Signs: Initial Vital Signs Temp Pulse Resp BP Pulse Ox 98.6 F 89 18 170/145 96 12/13/18 14:59 12/13/18 14:59 12/13/18 14:59 12/13/18 14:59 12/13/18 14:59 - Constitutional General appearance: chronically ill - Neurologic Sensorimotor examination: intact Detailed motor examination: grossly full strength in all extremities Motor examination - right side: 5/5: deltoids, biceps, triceps, wrist flexion, wrist extension, steamer blocker, hip flexors, tibialis Anterior, quadriceps, toe extension (EHL), plantarflexion Motor examination - left side: 5/5: deltoids, biceps, triceps, wrist flexion, wrist extension, hip flexors, steamer blocker, quadriceps, tibialis Anterior, toe extension (EHL), plantarflexion Detailed sensory examination: intact Posture: other (none) Reflex and gait examination: intact Reflexes: Biceps: 2+, Triceps: 2+, Brachioradialis: 2+, Patella: 2+, Achilles: 2+ Mental Status Examination: awake, alert, oriented to person, oriented to place, oriented to time, follows commands appropriately, answers questions appropriately, no agnosia, no aphasia, no aproxia Cranial nerve examination: PERRL, EOMI, visual martinez intact, corneal reflexes brisk symmetrically, sensory to face intact, mastication intact, no facial asymmetry is present, no dysarthria, hearing is intact symmetrically, soft palate elevates bilaterally upon phonation, gag reflex intact, flexes SCM and trapezius muscles symmetrically with full power, tongue protrudes midline, no atrophy or facial fasiculations present Results - Laboratory Findings CBC and BMP: 12/14/18 04:05 12/14/18 10:00 Abnormal lab findings: Abnormal lab results WBC 12.5 K/mcL (4.3-11.1) H 12/14/18 04:05 MCV 80.8 fL (83.0-100.0) L 12/14/18 04:05 MCHC 35.9 g/dL (31.6-35.5) H 12/14/18 04:05 Plt Count 526 K/mcL (140-400) H 12/14/18 04:05 MPV 8.8 fL (9.4-12.4) L 12/14/18 04:05 Neutrophils # 9.0 K/mcL (1.6-8.9) H 12/14/18 04:05 VBG pCO2 40 mmHg (41-51) L 12/14/18 04:29 VBG pO2 115 mmHg (25-50) H 12/14/18 04:29 Sodium 124 mEq/L (136-145) L D 12/14/18 10:00 Potassium 2.6 mEq/L (3.5-5.1) L D 12/14/18 10:00 Chloride 82 mEq/L (98-107) L 12/14/18 08:09 Carbon Dioxide 19 mEq/L (23-29) L 12/14/18 10:00 Creatinine 1.21 mg/dL (0.60-1.20) H 12/13/18 19:11 Est GFR ( Amer) 57 (> 60) L 12/14/18 06:55 Est GFR (Non-Af Amer) 50 (> 60) L 12/14/18 08:09 Glucose 128 mg/dL (70-105) H 12/14/18 08:09 POC Glucose 205 mg/dL (70-99) H 12/14/18 05:48 Calculated Osmolality 257 (280-300) L 12/14/18 10:00 Calcium 6.3 mg/dL (8.6-10.3) L 12/14/18 10:00 Alkaline Phosphatase 114 Units/L (34-104) H 12/13/18 14:48 Urine Clarity Cloudy (Clear) A 12/13/18 15:40 Ur Specific [place] 1.009 (1.010-1.025) L 12/13/18 15:40 Urine Blood Small (Negative) H 12/13/18 15:40 Ur Leukocyte Esterase Large (Negative) H 12/13/18 15:40 Urine Microscopic WBC TNTC per hpf (0-3) H 12/13/18 15:40 Urine Bacteria Many per hpf (None-Few) H 12/13/18 15:40 Urine Osmolality 89 mOsm/kg (300-1090) L 12/13/18 20:21 Salicylates < 2.5 mg/dL (15.0-30.0) L 12/13/18 14:48 Acetaminophen < 10 mcg/mL (10-20) L 12/13/18 14:48 Consult Discharge Plan - Plan Referrals: NONE,PCP [Primary Care Provider] -
[2018-12-14] MEDS: D5% in Water 500 ML IVC SCH ×4 (12:04→14:34)
[2018-12-14] MEDS ORDERED: D5% in Water 1,000 ML IVC PRN (12:31)
[2018-12-14] MEDS ORDERED: *HR* Dextrose 50 % in Water (Syg) 50 ML SYRINGE IVP PRN (12:31)
[2018-12-14] MEDS ORDERED: Dextrose Gel 15 GM/37.5 ML TUBE PO PRN ×2 (12:31)
[2018-12-14 12:44] LABS: BUN/Creatinine Ratio 15 (6-26); Blood Urea Nitrogen 11 mg/dL (6-20); Calcium 6.3 mg/dL (8.6-10.3); Carbon Dioxide 20 mEq/L (23-29); Chloride 96 mEq/L (98-107); Glucose 149 mg/dL (70-105); Osmolality,Calculated 252 (280-300); Potassium 2.4 mEq/L (3.5-5.1); Sodium 120 mEq/L (136-145); eGFR For African Americans > 60 (> 60); eGFR For Non-African Americans > 60 (> 60)
[2018-12-14] MEDS: Insulin LISPRO 300 UNITS/3 ML VIAL SQ SCH ×2 (13:07→15:55)
[2018-12-14 13:16] LABS: Estimated Average Glucose 140 mg/dl
[2018-12-14] MEDS ORDERED: *HR* OxyCODONE/APAP 10/325 TABLET PO PRN (13:20)
--- NOTE | 2018-12-14 13:34 | Internal Med Progress Note ---
Hospitalist Progress Note - Encounter Date of Encounter: 12/14/18 Time of Encounter: 07:10 - Subjective Interval History: Patient was admitted overnight and managed for hyponatremia. She has been having Q2H chemistries and has been off hypertonic saline since presentation to the ICU. She has received a few boluses of D5W and has had some MIV fluids to help equilibrate sodium correction. Nephrology has been following and helping co-manage her sodium correction. Upon my assessment of the patient, she is alert, coherent, cooperative, oriented 3, and in no distress. She is not exhibiting any signs of alcohol withdrawal at this time. She does drink excessive alcohol, roughly 15 beers per day every day. She is on CIWA protocol and beer with meals to help prevent ETOH withdrawal symptoms. - Exam Vitals: Temp Pulse Resp BP Pulse Ox 97.5 F L 79 16 128/116 99 12/14/18 12:44 12/14/18 13:00 12/14/18 13:00 12/14/18 13:00 12/14/18 13:00 Exam: General: NAD HEENT: no icterus, neck supple, full ROM Chest: CTA B, no WRR, RRR, no MTR Abdomen: soft, NT, no HSMG, + BS Ext: no CCE, no calf pain Neuro: A&Ox3, no focal deficits Skin: warm and dry - Assessment and Plan (1) Hyponatremia Current Visit: Yes Status: Acute Assessment and Plan: 1. Slow correction as per nephrology. 2. Continue Q2H chemistries and MIV w D5W. 3. Discussed with Dr. Mo. (2) Alcoholism Current Visit: Yes Status: Chronic Assessment and Plan: 1. CIWA protocol ordered. 2. MVI/Thiamine/Folate daily. 3. BEER TID w meals to help rpevent withdrawal. 4. Counseled patient at length on the need to wean off and stop alcohol use. (3) Breast cancer Current Visit: Yes Status: Chronic Assessment and Plan: 1. Outpatient oncology follow up. (4) Seizure Current Visit: Yes Status: Acute Assessment and Plan: 1. One seizure last night in ER. 2. Seizure precautions. 3. Discussed with Neurology -- no AED for now. 4. Monitor and treat alcohol withdrawal aggressively. (5) DVT prophylaxis Current Visit: Yes Status: Acute Assessment and Plan: 1. Heparin SQ. Plan of Care Discussed with: other (patient, Dr. Mo) Internal Medicine: Result - Labs CBC & Chem 7: 12/14/18 04:05 12/14/18 12:10 Labs: Short CBC 12/13/18 12/14/18 Range/Units 14:48 04:05 WBC 12.9 H 12.5 H (4.3-11.1) K/mcL Hgb 14.3 13.8 (11.5-15.4) g/dL Hct 40.3 38.4 (35.3-44.9) % Plt Count 537 H 526 H (140-400) K/mcL Neutrophils # 9.5 H 9.0 H (1.6-8.9) K/mcL BMP 12/13/18 12/13/18 12/13/18 14:48 19:11 21:00 Sodium 104 L* 111 L* 110 L* Potassium 3.7 3.5 3.5 Chloride 74 L 78 L 80 L Carbon Dioxide 15 L 25 25 BUN 16 15 15 Creatinine 1.46 H 1.21 H 1.14 Glucose 213 H 124 H 125 H Calcium 9.7 9.4 9.4 12/13/18 12/14/18 12/14/18 23:50 02:15 04:05 Sodium 112 L* 114 L* 114 L* Potassium 3.5 3.9 3.5 Chloride 80 L 81 L 80 L Carbon Dioxide 24 24 24 BUN 15 14 15 Creatinine 1.10 1.15 1.15 Glucose 133 H 134 H 157 H Calcium 9.5 9.6 9.5 12/14/18 12/14/18 12/14/18 06:55 08:09 10:00 Sodium 112 L* 114 L* 124 L D Potassium 3.3 L 3.6 2.6 L D Chloride 81 L 82 L 99 Carbon Dioxide 25 26 19 L BUN 15 15 11 Creatinine 1.17 1.11 0.71 Glucose 189 H 128 H 99 Calcium 9.3 9.2 6.3 L 12/14/18 12:10 Sodium 120 L* Potassium 2.4 L* Chloride 96 L Carbon Dioxide 20 L BUN 11 Creatinine 0.75 Glucose 149 H Calcium 6.3 L Liver Function 12/13/18 Range/Units 14:48 Total Bilirubin 1.0 (0.3-1.0) mg/dL Direct Bilirubin 0.2 (0.0-0.2) mg/dL AST 17 (13-39) Units/L ALT 12 (7-52) Units/L Alkaline Phosphatase 114 H (34-104) Units/L Albumin 4.1 (3.5-5.7) g/dL Urine 12/13/18 Range/Units 15:40 Urine Color Yellow (Yellow) Urine Clarity Cloudy A (Clear) Urine pH 6.0 (5.0-8.0) pH Units Ur Specific [place] 1.009 L (1.010-1.025) Urine Protein Negative (Neg-Trace) mg/dL Urine Glucose (UA) Normal (Normal) mg/dL - Impressions Impressions Head CT 12/13/18 15:00 IMPRESSION: No acute intracranial abnormality. If patient's clinical symptomatology persists, MRI of the brain is recommended. D/ / 12/13/2018 15:09:35 Neel Yo MD / branden Interpreting Provider: Neel Yo MD Chest X-Ray 12/13/18 19:18 IMPRESSION: Right IJ line with the tip of the catheter in lower SVC. No airspace consolidation. D/ / Wilfredo Knight / Wilfredo Knight Interpreting Provider: Wilfredo Knight Consult Discharge Plan - Plan Referrals: NONE,PCP [Primary Care Provider] - (3) Breast cancer Qualifiers: Breast location: unspecified site of breast Estrogen receptor status: unspecified Patient sex: female Laterality: unspecified laterality Qualified Code(s): C50.919 - Malignant neoplasm of unspecified site of unspecified female breast
--- NOTE | 2018-12-14 13:58 | Nephrology Consult Note ---
Date of Encounter: 12/14/18 Time of Encounter: 11:00 Assessment and Plan (1) Hyponatremia Current Visit: Yes Status: Acute Acute symptomatic hyponatremia in the setting of EtOH abuse, HCTZ and decerased po intake Urine osm noted appropriately low along with low urine sodium which support poor solute intake and overall volume depletion TSH and cotrisol levels WNL Will check uric acid level T avoid central pontine demyelination, will correct no more than 6-10 point in 24hrs Will bolus with D5W at 500c now and continue 100cc/hr Continue serial sodium check q2 for now till stabilized (2) Seizure Current Visit: Yes Status: Acute Neurology on board (3) Alcoholism Current Visit: Yes Status: Chronic Withdrawal protocol per primary team Agree with banana bag with MVI, thiamine and folate History of Present Illness - Reason for Consult Consult date: 12/14/18 hyponatremia Requesting physician: Brittani Duarte - History of Present Illness 58 y o female with PMH of EtOH abuse, HTN, breast cancer currently undergoing xRT admitted with altered mental status with sodium level noted at 104. Pt apparently had a possible witnessed seizure prior to arrival. She was given hypretonic saline 150cc bolus in the ED with repeat sodium rising to 111 and ultimately rising to 124 by this am despite measures to stop rapid rise with several D5W boluses and currently on D5W at 100cc/hr. Pt reports drinking up to 15 or more bottles of beer a day for her "anxiety". She also reports decreased po intake with poor appetite lately. She is also noted to take HCTZ as well.Pt seen and examined this am more awake and able to follow instructions. Of noted, pt ate full breakfast per nurse Past Med Surg Social Fam HX - Past Medical History Medical history: cancer Additional medical history: breast cancer Psychiatric history: anxiety, depression - Past Surgical History Surgical History: breast surgery - Social History Smoking Status: Current every day smoker Packs per day: 2 Smokeless Tobacco Status: No Alcohol use: heavy Drug use: none Medications and Allergies Budesonide/Formoterol 80/4.5 [Symbicort 80/4.5] 2 puff IH BID 12/13/18 [History] Buspirone HCl [Buspar] 10 mg PO TID 12/13/18 [History] Fluconazole [Diflucan] 100 mg PO DAILY 12/13/18 [History] Lisinopril-HCTZ 20-12.5 [Prinzide 20-12.5] 1 tab PO DAILY 12/13/18 [History] Sertraline [Zoloft] 100 mg PO DAILY 12/13/18 [History] hydrOXYzine HCl [Hydroxyzine HCl] 25 mg PO TID PRN 12/13/18 [History] Allergy/AdvReac Type Severity Reaction Status Date / Time acetaminophen [From Vicodin] Allergy Rash Verified 12/13/18 19:16 codeine Allergy Hives Verified 12/13/18 21:36 hydrocodone [From Vicodin] Allergy Rash Verified 12/13/18 19:16 ibuprofen AdvReac Nausea Verified 12/13/18 21:36 Review of Systems All Systems review (narrative): The rest of the systems are negative Constitutional: anorexia (admits), fatigue (admits) Cardiovascular: chest pain (denies), leg edema (denies) Respiratory: dyspnea (denies) Gastrointestinal: diarrhea (denies), nausea (denies), vomiting (denies) Exam - Vital Signs Vital signs: Initial Vital Signs Temp Pulse Resp BP Pulse Ox 98.6 F 89 18 170/145 96 12/13/18 14:59 12/13/18 14:59 12/13/18 14:59 12/13/18 14:59 12/13/18 14:59 Vital Signs - Last 8 Hours Temp Pulse Resp BP Pulse Ox 12/14/18 13:00 79 16 128/116 99 12/14/18 12:44 97.5 F L 12/14/18 12:00 72 18 103/91 98 12/14/18 11:00 76 20 96/63 97 12/14/18 10:00 85 20 103/49 99 12/14/18 09:00 75 14 119/78 98 12/14/18 08:24 96.7 F L 12/14/18 08:00 77 12/14/18 07:00 80 18 96/56 90 12/14/18 06:00 80 20 120/104 98 Intake and Output 12/13/18 12/14/18 12/14/18 23:59 07:59 15:59 Intake Total 150 / 150 500 / 1600 1100 / 1600 Output Total 1250 / 1250 700 / 1775 1075 / 1775 Balance -1100 / -1100 -200 / -175 25 / -175 Intake: IV Fluids 150 / 150 500 / 1300 800 / 1300 3% Sodium Chloride 150 ML @ 300 150 / 150 mls/hr IVC .Q30M [facility] Rx#: [id number] Dextrose 5% 500 ML @ 999 mls/hr 800 / 800 IVC .Q31M [facility] Rx#:[id number] Dextrose 5% 250 ML @ 1000 mls/ 500 / 500 hr IVC .Q15M [facility] Rx#:[id number] Oral 0 / 300 300 / 300 Output: Catheter 1250 / 1250 700 / 1775 1075 / 1775 Other: Meal Breakfast Percent of Meal Consumed 50% Weight 104.2 kg Blood Glucose* 205 229 - General Appearance General appearance: well-developed, well-nourished EENT: ATNC, mucous membranes moist Neck: no JVD, supple Respiratory: clear Cardiology: no edema, normal S1, normal S2 Gastrointestinal: no tenderness, no guarding, obese Integumentary: warm and dry Neurologic: alert and oriented x3 Musculoskeletal: no deformities Psychiatric: mood/affect appropriate, cooperative Results - Lab Results 12/14/18 04:05 12/14/18 12:10 Most recent lab results 12/14/18 12/14/18 12/14/18 02:15 04:05 06:18 Calcium 9.6 9.5 Urine Sodium 15.9 12/14/18 12/14/18 12/14/18 06:55 08:09 10:00 Calcium 9.3 9.2 6.3 L Urine Sodium 12/14/18 12:10 Calcium 6.3 L Urine Sodium Consult Discharge Plan - Plan Referrals: NONE,PCP [Primary Care Provider] -
[2018-12-14 14:57] LABS: Calcium 8.9 mg/dL (8.6-10.3); Potassium 4.2 mEq/L (3.5-5.1)
[2018-12-14 16:49] LABS: Magnesium 1.7 mg/dL (1.6-2.6); Potassium 4.5 mEq/L (3.5-5.1)
[2018-12-14] MEDS ORDERED: Thiamine (B-1) 100 MG, Folic Acid 1 MG, MVI, adult with vitamin K 10 ML in 0.9 % Sodi... IVPB SCH (18:00)
[2018-12-14 18:29] LABS: Magnesium 1.7 mg/dL (1.6-2.6)
[2018-12-14 20:24] LABS: Calcium 8.9 mg/dL (8.6-10.3); Magnesium 1.8 mg/dL (1.6-2.6); Potassium 4.7 mEq/L (3.5-5.1)
[2018-12-14 22:38] LABS: Calcium 8.8 mg/dL (8.6-10.3); Magnesium 1.7 mg/dL (1.6-2.6); Potassium 4.6 mEq/L (3.5-5.1)
[2018-12-15 00:38] LABS: Calcium 9.1 mg/dL (8.6-10.3); Magnesium 1.8 mg/dL (1.6-2.6); Potassium 4.6 mEq/L (3.5-5.1)
[2018-12-15 02:49] LABS: Calcium 8.7 mg/dL (8.6-10.3); Magnesium 1.7 mg/dL (1.6-2.6); Potassium 4.2 mEq/L (3.5-5.1)
[2018-12-15 04:25] LABS: Basophils # 0.1 K/mcL (0.0-0.2); Basophils % 0.7 %; Eosinophils # 0.2 K/mcL (0.0-0.6); Eosinophils % 1.6 %; Hematocrit 33.6 % (35.3-44.9); Lymphocytes # 2.5 K/mcL (0.6-4.6); Lymphocytes % 23.9 %; Mean Corpuscular HGB Conc 35.1 g/dL (31.6-35.5); Mean Corpuscular Hemoglobin 29.7 pg (28.0-33.3); Mean Corpuscular Volume 84.6 fL (83.0-100.0); Mean Platelet Volume 8.9 fL (9.4-12.4); Monocytes # 0.8 K/mcL (0.0-1.3); Monocytes % 7.8 %; Neutrophils # 6.7 K/mcL (1.6-8.9); Platelet Count 441 K/mcL (140-400); Red Blood Count 3.97 M/mcL (3.82-4.97); Red Cell Distribution Width 13.3 % (11.5-14.5); White Blood Count 10.3 K/mcL (4.3-11.1)
[2018-12-15 04:31] LABS: Hemoglobin 11.8 g/dL (11.5-15.4)
[2018-12-15 04:48] LABS: Albumin 3.4 g/dL (3.5-5.7); Albumin/Globulin Ratio 1.3 (1.1-2.2); Bilirubin,Total 0.7 mg/dL (0.3-1.0); Calcium 8.8 mg/dL (8.6-10.3); Globulin 2.6 g/dL (2.4-3.5); Magnesium 1.7 mg/dL (1.6-2.6); Potassium 4.2 mEq/L (3.5-5.1)
[2018-12-15] MEDS: *HR* Heparin 5,000 UNIT/ML VIAL SQ SCH ×2 (05:13→18:31)
[2018-12-15 06:39] LABS: Calcium 8.9 mg/dL (8.6-10.3); Magnesium 1.7 mg/dL (1.6-2.6); Potassium 4.2 mEq/L (3.5-5.1)
[2018-12-15] MEDS: Insulin LISPRO 300 UNITS/3 ML VIAL SQ SCH ×3 (07:19→15:35)
[2018-12-15] MEDS: Vitamin B Complex/Vit C/Vit E 1 EACH TABLET PO SCH (07:34)
[2018-12-15] MEDS: Thiamine (B-1) 100 MG TABLET PO SCH (07:35)
[2018-12-15] MEDS: Folic Acid 1 MG TABLET PO SCH (07:35)
[2018-12-15] MEDS: Beer can PO SCH ×3 (08:03→17:05)
[2018-12-15 08:25] LABS: Calcium 9.1 mg/dL (8.6-10.3); Magnesium 1.6 mg/dL (1.6-2.6); Potassium 4.3 mEq/L (3.5-5.1)
[2018-12-15 10:18] LABS: Calcium 8.8 mg/dL (8.6-10.3); Magnesium 1.6 mg/dL (1.6-2.6); Potassium 4.2 mEq/L (3.5-5.1)
--- NOTE | 2018-12-15 10:35 | Internal Med Progress Note ---
Hospitalist Progress Note - Encounter Date of Encounter: 12/15/18 Time of Encounter: 07:05 - Subjective Interval History: Patient doing well this morning with no complaints. She is alert and oriented 3 and has no focal neurologic deficits, confusion, or disorientation. She did have one episode last night of disorientation roughly 2 hours after she took Librium. I therefore discontinued the Librium this morning. The reason I gave her Librium was because she was refusing to drink beer here as she does not drink [place] [employer]. We therefore were able to obtain Bud[employer], which she will drink. By giving her beer, I hope to prevent alcohol withdrawal. She is still maintained on CIWA protocol. Upon further history from patient, I inquired about her water intake at home. She states she drinks excessive water at home, roughly 2-1/2 to 3 gallons per day at a minimum. Additionally, she drinks other fluids and roughly 15 beers per day. She suffers from high anxiety and therefore drinks alcohol to offset her anxiety. Given her excessive water i ntake, I am limiting her to 2 L per day of water per day, but she can drink other fluids with electrolytes in them. 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 - Exam Vitals: Temp Pulse Resp BP Pulse Ox 98.2 F 89 16 94/67 94 12/15/18 07:36 12/15/18 09:00 12/15/18 09:00 12/15/18 09:00 12/15/18 08:00 Exam: General: NAD; A&Ox3 HEENT: no icterus, neck supple, moist mucosa Chest: CTA B, no WRR, RRR, no MTR Abdomen: soft, NT, ND, No HSMG, + BS Ext: no CCE; equal pulses Neuro: CN 2-12 intact, no focal deficits, normal motor strength, normal sensation Skin: warm and dry - Assessment and Plan (1) Hyponatremia Current Visit: Yes Status: Acute Assessment and Plan: 1. Multifactorial -- excessive alcohol intake, water intoxication (psychogenic polydipsia) and HCTZ use. 2. Sodium correcting slowly now. 3. Yesterday's labs may have been lab error as there were several fluctuations in sodium with little to no change in treatment between sodium fluctuations -- discussed with Dr. Orimilikwe. 4. Continue monitoring serum chemistries Q2H; may back off to Q4H soon. 5. Nephrology following. 6. Consult psychiatry for anxiety and psychogenic polydipsia. 7. Water restriction of 2000 ml per day now; other liquids with electrolytes (Gatorade, juice, etc.) not restricted. 8. Last night's episode of AMS most likely due to Librium as it occurred about 1-2 hours after Librium ingestion. (2) Alcoholism Current Visit: Yes Status: Chronic Assessment and Plan: 1. Continue CIWA protocol. 2. MVI/thiamine/Folate daily. 3. BEER -- 2 cans TID with meals in an effort to prevent alcohol withdrawal. (3) Breast cancer Current Visit: Yes Status: Chronic Assessment and Plan: 1. Outpatient follow up with Oncology. (4) Seizure Current Visit: Yes Status: Acute Assessment and Plan: 1. Seizure precautions. 2. Monitor closely. 3. Likely due to acute hyponatremia presentation in ER. No further seizures. Neurology does not recommend anti-epileptics at this time. (5) DVT prophylaxis Current Visit: Yes Status: Acute Assessment and Plan: 1. Heparin SQ. - Time Spent with Patient Total time spent is greater than 50% in coordination of care (as documented) at patient's floor/unit and/or counseling patient: Greater than 35 minutes Plan of Care Discussed with: other (patient, RN, MDR team, pharmacy) Internal Medicine: Result - Labs CBC & Chem 7: 12/15/18 04:00 12/15/18 09:40 Labs: Short CBC 12/15/18 Range/Units 04:00 WBC 10.3 (4.3-11.1) K/mcL Hgb 11.8 D (11.5-15.4) g/dL Hct 33.6 L (35.3-44.9) % Plt Count 441 H (140-400) K/mcL Neutrophils # 6.7 (1.6-8.9) K/mcL BMP 12/14/18 12/14/18 12/14/18 10:00 12:10 13:55 Sodium 124 L D 120 L* 114 L* Potassium 2.6 L D 2.4 L* 4.2 D Chloride 99 96 L 80 L Carbon Dioxide 19 L 20 L 22 L BUN 11 11 14 Creatinine 0.71 0.75 1.20 Glucose 99 149 H 128 H Calcium 6.3 L 6.3 L 8.9 12/14/18 12/14/18 12/14/18 16:04 17:53 19:50 Sodium 113 L* 112 L* 114 L* Potassium 4.5 5.0 4.7 Chloride 82 L 84 L 83 L Carbon Dioxide 22 L 24 22 L BUN 14 15 15 Creatinine 1.14 1.36 H 1.24 H Glucose 94 121 H 121 H Calcium 9.0 9.0 8.9 12/14/18 12/14/18 12/15/18 22:00 23:55 01:59 Sodium 114 L* 115 L* 114 L* Potassium 4.6 4.6 4.2 Chloride 84 L 84 L 86 L Carbon Dioxide 21 L 20 L 24 BUN 15 15 16 Creatinine 1.29 H 1.41 H 1.38 H Glucose 128 H 130 H 129 H Calcium 8.8 9.1 8.7 12/15/18 12/15/18 12/15/18 04:00 05:45 07:40 Sodium 115 L* 117 L* 116 L* Potassium 4.2 4.2 4.3 Chloride 86 L 87 L 89 L Carbon Dioxide 25 25 26 BUN 15 15 15 Creatinine 1.29 H 1.29 H 1.28 H Glucose 124 H 128 H 126 H Calcium 8.8 8.9 9.1 12/15/18 09:40 Sodium 118 L* Potassium 4.2 Chloride 91 L Carbon Dioxide 25 BUN 14 Creatinine 1.41 H Glucose 145 H Calcium 8.8 Liver Function 12/15/18 Range/Units 04:00 Total Bilirubin 0.7 (0.3-1.0) mg/dL AST 21 (13-39) Units/L ALT 12 (7-52) Units/L Alkaline Phosphatase 87 (34-104) Units/L Albumin 3.4 L (3.5-5.7) g/dL - Impressions Impressions Head CT 12/14/18 21:39 IMPRESSION: No acute intracranial abnormality. D/ / Davi Herring MD / Davi Herring MD Interpreting Provider: Davi Herring MD Consult Discharge Plan - Plan Referrals: NONE,PCP [Primary Care Provider] - (3) Breast cancer Qualifiers: Breast location: unspecified site of breast Estrogen receptor status: un specified Patient sex: female Laterality: unspecified laterality Qualified Code(s): C50.919 - Malignant neoplasm of unspecified site of unspecified female breast
--- NOTE | 2018-12-15 11:56 | Consult Note ---
Date of Encounter: 12/15/18 Time of Encounter: 11:41 Assessment & Recommendation (1) Hyponatremia Current visit: Yes Status: Acute Assessment & Recommendation: Suspect current presentation is multifactorial. Beer potomania, her SSRI, anxiety, and perhaps a genetic component likely all played a role. Since Zoloft can severely lower sodium levels in a susceptible person recommend stopping this medication for now. Client struggles with anxiety but would avoid SSRIs at this time since SSRIs are known to contribute to hyponatremia. Can increase her Buspar and Vistaril in the meantime to 15mg TID and 50mg TIDprn to help with anxiety control. PCP currently prescribes meds. Recommend a older adult social work specialist consult to link her with a psychiatrist as anxiety may be playing a role in client feeling like she constantly needs a beverage. Client ambivalent about cutting back her alcohol intake but referral information for AOD treatment options would be beneficial. Call if any questions. History of Present Illness Requesting Physician: Matt Unger Reason for consult: psychogenic polydipsia History of present illness: Ms. Onur Morrison is a 58 year old female who was admitted secondary to confusion. Found to be severely hyponatremic. Electrolyte balance currently being corrected. Client reports she drinks fluids all day long. Believes she drinks 8-15 beers daily along with 2 gallons of water. Family present and agree this is the case. Son states the whole family drinks lots of fluids and he estimates he drinks 3-4 gallons a day himself. Client states she has consumed fluids this way since she was a little girl. Has never had a problem with hyponatremia before that she is aware of. Family says diabetes insipidous runs in the family and multiple family members have this condition. 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 Would expect more of a hypenatrmeic picture with this condition but wonder if there is a genetic component to her fluid intake given that fluid balance disorders run in the family. Client is also treated for anxiety and depression by her PCP. Takes Zoloft, Buspar, and Vistaril. Denies any SI, intent, or plan. Not linked with a psychiatrist. Meds prescribed by PCP. Client states her anxiety is currently not well controlled and this may be driving her to drink as well. SSRIs can also lower sodium levels and Zoloft may have helped contribute to her hyponatremia. Client states she drinks fluids because her mouth and throat constantly feel dry and she feels like she is choking if she doesn't have a beverage. However, she feels like her drinking is under her voluntary control. If instructed to cut back her daily fluid intake client states she would not like it but would be able to do so. True psychogenic polydipsia is typically seen in primary thought disorders like Schizophrenia and the person involved is unable to control their fluid intake. Suspect client's presentation is more the result of beer potomania, her prescription SSRI, anxiety, and perhaps a genetic component as well. CC: Matt Unger Past Med Surg Social Fam HX - Past Medical History Medical history: cancer - Past Psychiatric History Psychiatric history: Reports: anxiety, depression Family psychiatric history: Unknown Family History of Suicide: Unknown - Past Surgical History Surgical History: breast surgery - Social History Smoking Status: Current every day smoker Smokeless Tobacco Status: No Alcohol use: heavy Drug use: none Medications & Allergies Budesonide/Formoterol 80/4.5 [Symbicort 80/4.5] 2 puff IH BID 12/13/18 [History] Buspirone HCl [Buspar] 10 mg PO TID 12/13/18 [History] Fluconazole [Diflucan] 100 mg PO DAILY 12/13/18 [History] Lisinopril-HCTZ 20-12.5 [Prinzide 20-12.5] 1 tab PO DAILY 12/13/18 [History] Sertraline [Zoloft] 100 mg PO DAILY 12/13/18 [History] hydrOXYzine HCl [Hydroxyzine HCl] 25 mg PO TID PRN 12/13/18 [History] Allergy/AdvReac Type Severity Reaction Status Date / Time acetaminophen [From Vicodin] Allergy Rash Verified 12/13/18 19:16 codeine Allergy Hives Verified 12/13/18 21:36 hydrocodone [From Vicodin] Allergy Rash Verified 12/13/18 19:16 ibuprofen AdvReac Nausea Verified 12/13/18 21:36 Review of Systems Constitutional: Reports: weakness Eyes: Denies: eye pain, vision change Ears, Nose, Throat: Denies: ear pain, throat pain, dental pain, hearing loss, congestion Cardiovascular: Denies: chest pain, palpitations, dyspnea on exertion Respiratory: Reports: other Gastrointestinal: Denies: abdominal pain, nausea, vomiting, diarrhea, constip ation Genitourinary female: Denies: urgency, dysuria, frequency, abnormal menses, dyspareunia Musculoskeletal: Denies: joint swelling, joint pain Integumentary: Denies: rash, lesions, pruritus Neurological: Reports: confusion Endocrine: Denies: fatigue, heat or cold intolerance Hematologic/Lymphatic: Denies: easy bruising, lymphadenopathy Allergic/Immunologic: Denies: urticaria, itchy eyes Psychiatry Exam - Constitutional Vitals: Temp Pulse Resp BP Pulse Ox 98.2 F 86 18 103/51 95 12/15/18 07:36 12/15/18 11:00 12/15/18 11:00 12/15/18 11:00 12/15/18 11:00 General appearance: obese - Musculoskeletal Station: relaxed Strength & Tone: normal for patient - Psychiatric Patient Orientation: Yes Person, Yes Time, Yes Place Level of alertness: Alert Behavior: calm, cooperative Psychomotor activity: Normal Eye Contact: Maintains Eye Contact Mood Description: Anxious Affect description: blunted Speech Volume: Normal Speech pattern: normal rate, normal rhythm, normal tone, fluent, spontaneous Language & Vocabulary: consistent with education Thought Process: Linear, Goal Oriented Thought Content: No Suicidal ideation, No Homicidal ideation, No Overt delusions Perceptual Disturbances: No Auditory hallucinations, No Visual hallucinations Attention Span Ability: Capable of Focused Attention Memory Description: Immediate Intact, Recent Impaired, Remote Intact Patient Reliability: Reliable Historian Fund of knowledge: Yes abstraction ability, Yes aware of current events Intelligence Estimate: Average Judgment: Fair Insight: Partial Results - Labs Labs: Laboratory Last Values WBC 10.3 K/mcL (4.3-11.1) 12/15/18 04:00 RBC 3.97 M/mcL (3.82-4.97) 12/15/18 04:00 Hgb 11.8 g/dL (11.5-15.4) D 12/15/18 04:00 Hct 33.6 % (35.3-44.9) L 12/15/18 04:00 MCV 84.6 fL (83.0-100.0) 12/15/18 04:00 MCH 29.7 pg (28.0-33.3) 12/15/18 04:00 MCHC 35.1 g/dL (31.6-35.5) 12/15/18 04:00 RDW 13.3 % (11.5-14.5) 12/15/18 04:00 Plt Count 441 K/mcL (140-400) H 12/15/18 04:00 MPV 8.9 fL (9.4-12.4) L 12/15/18 04:00 Immature Gran % 1.0 % (0-4) 12/15/18 04:00 Seg Neutrophils % 65.0 % 12/15/18 04:00 Lymphocytes % 23.9 % 12/15/18 04:00 Monocytes % 7.8 % 12/15/18 04:00 Eosinophils % 1.6 % 12/15/18 04:00 Basophils % 0.7 % 12/15/18 04:00 Neutrophils # 6.7 K/mcL (1.6-8.9) 12/15/18 04:00 Lymphocytes # 2.5 K/mcL (0.6-4.6) 12/15/18 04:00 Monocytes # 0.8 K/mcL (0.0-1.3) 12/15/18 04:00 Eosinophils # 0.2 K/mcL (0.0-0.6) 12/15/18 04:00 Basophils # 0.1 K/mcL (0.0-0.2) 12/15/18 04:00 VBG pH 7.41 pH Units (7.32-7.42) 12/14/18 04:29 VBG pCO2 40 mmHg (41-51) L 12/14/18 04:29 VBG pO2 115 mmHg (25-50) H 12/14/18 04:29 VBG HCO3 25 mEq/L (21-27) 12/14/18 04:29 Sodium 118 mEq/L (136-145) L* 12/15/18 09:40 Potassium 4.2 mEq/L (3.5-5.1) 12/15/18 09:40 Chloride 91 mEq/L (98-107) L 12/15/18 09:40 Carbon Dioxide 25 mEq/L (23-29) 12/15/18 09:40 BUN 14 mg/dL (6-20) 12/15/18 09:40 Creatinine 1.41 mg/dL (0.60-1.20) H 12/15/18 09:40 Est GFR ( Amer) 46 (> 60) L 12/15/18 09:40 Est GFR (Non-Af Amer) 38 (> 60) L 12/15/18 09:40 BUN/Creatinine Ratio 10 (6-26) 12/15/18 09:40 Glucose 145 mg/dL (70-105) H 12/15/18 09:40 POC Glucose 144 mg/dL (70-99) H 12/14/18 19:28 Est Mean Plasma Glucose 140 mg/dl 12/14/18 09:05 Hemoglobin A1c 6.5 % (-5.6) H 12/14/18 09:05 Calculated Osmolality 249 (280-300) L 12/15/18 09:40 Calcium 8.8 mg/dL (8.6-10.3) 12/15/18 09:40 Phosphorus 3.3 mg/dL (2.7-4.5) 12/13/18 19:11 Magnesium 1.6 mg/dL (1.6-2.6) 12/15/18 09:40 Total Bilirubin 0.7 mg/dL (0.3-1.0) 12/15/18 04:00 Direct Bilirubin 0.2 mg/dL (0.0-0.2) 12/13/18 14:48 Indirect Bilirubin 0.8 mg/dL (0.0-1.2) 12/13/18 14:48 AST 21 Units/L (13-39) 12/15/18 04:00 ALT 12 Units/L (7-52) 12/15/18 04:00 Alkaline Phosphatase 87 Units/L (34-104) 12/15/18 04:00 Serum Total Protein 6.0 g/dL (6.4-8.9) L 12/15/18 04:00 Albumin 3.4 g/dL (3.5-5.7) L 12/15/18 04:00 Globulin 2.6 g/dL (2.4-3.5) 12/15/18 04:00 Albumin/Globulin Ratio 1.3 (1.1-2.2) 12/15/18 04:00 TSH 3.473 mcIU/mL (0.340-5.600) 12/14/18 06:55 Free T4 0.90 ng/dl (0.70-2.00) 12/14/18 06:55 Random Cortisol 19.2 mcg/dl 12/14/18 06:55 Urine Color Yellow (Yellow) 12/13/18 15:40 Urine Clarity Cloudy (Clear) A 12/13/18 15:40 Urine pH 6.0 pH Units (5.0-8.0) 12/13/18 15:40 Ur Specific [place] 1.009 (1.010-1.025) L 12/13/18 15:40 Urine Protein Negative mg/dL (Neg-Trace) 12/13/18 15:40 Urine Glucose (UA) Normal mg/dL (Normal) 12/13/18 15:40 Urine Ketones Negative mg/dL (Negative) 12/13/18 15:40 Urine Blood Small (Negative) H 12/13/18 15:40 Urine Nitrite Negative (Negative) 12/13/18 15:40 Urine Bilirubin Negative (Negative) 12/13/18 15:40 Urine Urobilinogen Normal mg/dL (Normal) 12/13/18 15:40 Ur Leukocyte Esterase Large (Negative) H 12/13/18 15:40 Urine Microscopic RBC 0-3 per hpf (0-3) 12/13/18 15:40 Urine Microscopic WBC TNTC per hpf (0-3) H 12/13/18 15:40 Ur Squamous Epith Cells Few per lpf (None-Few) 12/13/18 15:40 Urine Bacteria Many per hpf (None-Few) H 12/13/18 15:40 Hyaline Casts None Seen per lpf (None-Few) 12/13/18 15:40 Urine Osmolality 83 mOsm/kg (300-1090) L 12/14/18 06:18 Urine Creatinine 16 mg/dL 12/13/18 16:14 Urine Sodium 15.9 mEq/L 12/14/18 06:18 Ur Uric Acid 19 mg/dL 12/13/18 20:13 Salicylates < 2.5 mg/dL (15.0-30.0) L 12/13/18 14:48 Urine Opiates Screen Negative ng/mL (Outehq=955) 12/13/18 15:09 Ur Buprenorphine Scrn Negative ng/mL (Cutoff=5) 12/13/18 15:09 Acetaminophen < 10 mcg/mL (10-20) L 12/13/18 14:48 Ur Barbiturates Screen Negative ng/mL (Jegsjw=230) 12/13/18 15:09 Ur Phencyclidine Scrn Negative ng/mL (Cutoff=25) 12/13/18 15:09 Ur Amphetamines Screen Negative ng/mL (Nrjuej=7044) 12/13/18 15:09 U Benzodiazepines Scrn Negative ng/mL (Eildij=106) 12/13/18 15:09 Urine Cocaine Screen Negative ng/mL (Cutoff= 300) 12/13/18 15:09 U Marijuana (THC) Screen Negative ng/mL (Cutoff = 50) 12/13/18 15:09 Ur Drug Screen Interp See Below 12/13/18 15:09 Ethyl Alcohol < 10 mg/dL (Less than 10) 12/13/18 14:48 - Impressions Impressions Head CT 12/14/18 21:39 IMPRESSION: No acute intracranial abnormality. D/ / Davi Herring MD / Davi Herring MD Interpreting Provider: Davi Herring MD Consult Discharge Plan - Plan Referrals: NONE,PCP [Primary Care Provider] -
[2018-12-15 13:22] LABS: Calcium 8.7 mg/dL (8.6-10.3); Magnesium 1.6 mg/dL (1.6-2.6); Potassium 4.2 mEq/L (3.5-5.1)
--- NOTE | 2018-12-15 13:23 | Neurology Progress Note ---
Date of Encounter: 12/15/18 Time of Encounter: 11:30 Assessment and Plan (1) Seizure Current Visit: Yes Status: Acute No prior history of epilepsy. Current confusion and seizures likely provoked by severe hyponatremia and history of alcoholism and withdrawal. Symptoms appear significant improved with medical treatment. Agree with medical treatment for hyponatremia only and no need for antiepileptic therapy at this time. Treat breakthrough seizure with benzodiazepam prn. Continue medical and supportive care and DT prophylaxis recommended. Will sign off at this time. Would re- evaluate her at your request Subjective Principal diagnosis: seizure/confusion Interval history: Patient is seen and examined at bedside. She is feeling slightly tired but otherwise no neurological complaints. No recurrent seizure activity since admission. Mental status at her baseline Objective - Constitutional Vitals: Temp Pulse Resp BP Pulse Ox 98.4 F 86 18 100/65 95 12/15/18 12:08 12/15/18 13:00 12/15/18 12:00 12/15/18 13:00 12/15/18 11:00 - Neurological Exam Sensorimotor examination: Present: intact Motor Examination: Present: grossly full strength in all extremities Motor examination - right side: 5/5: deltoids, biceps, triceps, wrist flexion, wrist extension, nutrition faculty member, hip flexors, tibialis Anterior, quadriceps, toe extension (EHL), plantarflexion Motor examination - left side: 5/5: deltoids, biceps, triceps, wrist flexion, wrist extension, hip flexors, nutrition faculty member, quadriceps, tibialis Anterior, toe extension (EHL), plantarflexion Sensation intact: Present: intact Posture: Present: other (none) Reflex and gait examination: intact Mental Status Examination: Present: awake, alert, oriented to person, oriented to place, oriented to time, follows commands appropriately, answers questions appropriately, no agnosia, no aphasia, no aproxia Cranial nerve examination: Present: PERRL, EOMI, visual martinez intact, corneal reflexes brisk symmetrically, sensory to face intact, mastication intact, no facial asymmetry is present, no dysarthria, hearing is intact symmetrically, soft palate elevates bilaterally upon phonation, gag reflex intact, flexes SCM and trapezius muscles symmetrically with full power, tongue protrudes midline, no atrophy or facial fasiculations present Results - Laboratory Findings CBC and BMP: 12/15/18 04:00 12/15/18 09:40 Abnormal lab findings: Abnormal lab results WBC 12.5 K/mcL (4.3-11.1) H 12/14/18 04:05 Hct 33.6 % (35.3-44.9) L 12/15/18 04:00 MCV 80.8 fL (83.0-100.0) L 12/14/18 04:05 MCHC 35.9 g/dL (31.6-35.5) H 12/14/18 04:05 Plt Count 441 K/mcL (140-400) H 12/15/18 04:00 MPV 8.9 fL (9.4-12.4) L 12/15/18 04:00 Neutrophils # 9.0 K/mcL (1.6-8.9) H 12/14/18 04:05 VBG pCO2 40 mmHg (41-51) L 12/14/18 04:29 VBG pO2 115 mmHg (25-50) H 12/14/18 04:29 Sodium 118 mEq/L (136-145) L* 12/15/18 09:40 Potassium 2.4 mEq/L (3.5-5.1) L* 12/14/18 12:10 Chloride 91 mEq/L (98-107) L 12/15/18 09:40 Carbon Dioxide 20 mEq/L (23-29) L 12/14/18 23:55 Creatinine 1.41 mg/dL (0.60-1.20) H 12/15/18 09:40 Est GFR ( Amer) 46 (> 60) L 12/15/18 09:40 Est GFR (Non-Af Amer) 38 (> 60) L 12/15/18 09:40 Glucose 145 mg/dL (70-105) H 12/15/18 09:40 POC Glucose 144 mg/dL (70-99) H 12/14/18 19:28 Hemoglobin A1c 6.5 % (-5.6) H 12/14/18 09:05 Calculated Osmolality 249 (280-300) L 12/15/18 09:40 Calcium 6.3 mg/dL (8.6-10.3) L 12/14/18 12:10 Alkaline Phosphatase 114 Units/L (34-104) H 12/13/18 14:48 Serum Total Protein 6.0 g/dL (6.4-8.9) L 12/15/18 04:00 Albumin 3.4 g/dL (3.5-5.7) L 12/15/18 04:00 Urine Clarity Cloudy (Clear) A 12/13/18 15:40 Ur Specific [place] 1.009 (1.010-1.025) L 12/13/18 15:40 Urine Blood Small (Negative) H 12/13/18 15:40 Ur Leukocyte Esterase Large (Negative) H 12/13/18 15:40 Urine Microscopic WBC TNTC per hpf (0-3) H 12/13/18 15:40 Urine Bacteria Many per hpf (None-Few) H 12/13/18 15:40 Urine Osmolality 83 mOsm/kg (300-1090) L 12/14/18 06:18 Salicylates < 2.5 mg/dL (15.0-30.0) L 12/13/18 14:48 Acetaminophen < 10 mcg/mL (10-20) L 12/13/18 14:48 Consult Discharge Plan - Plan Referrals: NONE,PCP [Primary Care Provider] -
[2018-12-15] MEDS ORDERED: Dextrose Gel 15 GM/37.5 ML TUBE PO PRN ×2 (13:33)
[2018-12-15] MEDS ORDERED: Nicotine 21 MG PATCH.TD24 TD PRN (13:33)
[2018-12-15] MEDS ORDERED: *HR* Dextrose 50 % in Water (Syg) 50 ML SYRINGE IVP PRN (13:33)
[2018-12-15] MEDS ORDERED: *HR* LORazepam 2 MG/ML VIAL IVP PRN (13:33)
[2018-12-15] MEDS: Thiamine (B-1) 100 MG, Folic Acid 1 MG, MVI, adult with vitamin K 10 ML in 0.9 % Sodi... IVPB SCH (15:11)
[2018-12-15 18:13] LABS: Magnesium 2.5 mg/dL (1.6-2.6); Potassium 4.6 mEq/L (3.5-5.1)
[2018-12-15] MEDS: *HR* OxyCODONE/APAP 10/325 TABLET PO PRN (19:59)
[2018-12-15] MEDS: Budesonide/Formoterol 80/4.5 1 PUFF INH IH SCH (20:43)
[2018-12-15 21:38] LABS: Calcium 8.9 mg/dL (8.6-10.3); Magnesium 2.3 mg/dL (1.6-2.6); Potassium 4.9 mEq/L (3.5-5.1)
--- NOTE | 2018-12-15 22:44 | Nephrology Progress Note ---
Date of Encounter: 12/15/18 - Assessment and Plan (1) Hyponatremia Current Visit: Yes Status: Acute (2) Seizure Current Visit: Yes Status: Acute (3) Alcoholism Current Visit: Yes Status: Chronic Subjective Principal diagnosis: seizure/confusion Objective - Vital Signs Vital signs: Vital Signs Temp Pulse Resp BP Pulse Ox 12/15/18 20:45 16 95 12/15/18 19:08 98.6 F 89 16 100/68 95 12/15/18 16:21 98.6 F 90 18 83/64 94 12/15/18 15:13 98.2 F 12/15/18 15:00 84 12/15/18 14:00 96 20 96/54 12/15/18 13:00 86 100/65 12/15/18 12:08 98.4 F 12/15/18 12:00 86 18 100/65 12/15/18 11:00 86 18 103/51 95 12/15/18 09:00 89 16 94/67 12/15/18 08:00 88 16 92/67 94 12/15/18 07:36 98.2 F 12/15/18 07:23 86 12/15/18 07:00 82 16 92/67 94 12/15/18 06:00 82 16 110/66 12/15/18 05:00 94 21 99/66 97 12/15/18 04:37 81 12/15/18 04:00 98.0 F 79 17 79/50 95 12/15/18 03:00 81 18 100/61 97 12/15/18 02:00 80 16 102/72 94 12/15/18 01:00 85 20 106/90 99 12/15/18 00:00 82 16 124/64 98 12/14/18 23:17 90 12/14/18 23:16 98.1 F 12/14/18 23:00 80 19 96/62 98 Intake and Output 12/15/18 12/15/18 12/15/18 07:59 15:59 23:59 Intake Total 650 / 890 240 / 890 Output Total 700 / 1900 600 / 1900 600 / 1900 Balance -700 / -1010 50 / -1010 -360 / -1010 Intake: IV Fluids 50 / 50 Magnesium Sulfate Premix 2gm/ 50 / 50 50mL 2 gm In 50 ml @ 50 mls/hr IVPB ONCE ONE Rx#:[id number] Oral 600 / 840 240 / 840 Output: Catheter 700 / 1900 600 / 1900 600 / 1900 Other: Meal Lunch Dinner Percent of Meal Consumed 100% 75% Blood Glucose* 134 150 123 - Lab 12/15/18 04:00 12/15/18 21:00 Most recent lab results 12/15/18 12/15/18 12/15/18 12:50 17:00 21:00 Calcium 8.7 9.0 8.9 Magnesium 1.6 2.5 2.3 Consult Discharge Plan - Plan Referrals: NONE,PCP [Primary Care Provider] -
[2018-12-16 01:41] LABS: Calcium 8.7 mg/dL (8.6-10.3); Magnesium 2.3 mg/dL (1.6-2.6); Potassium 4.5 mEq/L (3.5-5.1)
[2018-12-16] MEDS: *HR* OxyCODONE/APAP 10/325 TABLET PO PRN ×3 (02:37→16:42)
[2018-12-16] MEDS: *HR* Heparin 5,000 UNIT/ML VIAL SQ SCH ×2 (05:25→16:37)
[2018-12-16 05:50] LABS: Basophils # 0.1 K/mcL (0.0-0.2); Eosinophils # 0.1 K/mcL (0.0-0.6); Eosinophils % 1.3 %; Hematocrit 32.2 % (35.3-44.9); Immature Granulocytes % 1.4 % (0-4); Lymphocytes # 2.7 K/mcL (0.6-4.6); Lymphocytes % 30.7 %; Mean Corpuscular HGB Conc 34.2 g/dL (31.6-35.5); Mean Corpuscular Hemoglobin 29.3 pg (28.0-33.3); Mean Corpuscular Volume 85.9 fL (83.0-100.0); Mean Platelet Volume 8.9 fL (9.4-12.4); Monocytes # 0.9 K/mcL (0.0-1.3); Monocytes % 10.6 %; Neutrophils # 4.8 K/mcL (1.6-8.9); Platelet Count 426 K/mcL (140-400); Red Blood Count 3.75 M/mcL (3.82-4.97); Red Cell Distribution Width 13.7 % (11.5-14.5); White Blood Count 8.7 K/mcL (4.3-11.1)
--- NOTE | 2018-12-16 06:41 | Electrocardiograph Report ---
[employer] [facility] Test Date: 2018-12-13 Pat Name: Maia Morrison Department: [id number] Room: 2N06 Gender: F Technical Research Scientist: : 1960 Requested By: Brittani Duarte Order Number: [id number] Reading MD: Chris Haines Measurements Intervals [place] Rate: 95 P: 45 [place]: 151 QRS: 51 QRSD: 102 T: 74 QT: 367 QTc: 452 Interpretive Statements Sinus rhythm Paired ventricular premature complexes Biatrial enlargement Low voltage, precordial leads Baseline wander in lead(s) V2 Electronically Signed On 12-16-2018 6:39:23 EDT by Chris Haines
[2018-12-16 07:19] LABS: Calcium 8.8 mg/dL (8.6-10.3); Magnesium 2.3 mg/dL (1.6-2.6); Potassium 4.7 mEq/L (3.5-5.1)
[2018-12-16] MEDS: Beer can PO SCH (07:46)
[2018-12-16] MEDS: Budesonide/Formoterol 80/4.5 1 PUFF INH IH SCH ×2 (07:47→20:01)
[2018-12-16] MEDS: Insulin LISPRO 300 UNITS/3 ML VIAL SQ SCH ×3 (07:49→16:37)
[2018-12-16] MEDS: Vitamin B Complex/Vit C/Vit E 1 EACH TABLET PO SCH (07:49)
[2018-12-16] MEDS: Folic Acid 1 MG TABLET PO SCH (07:51)
[2018-12-16] MEDS: Thiamine (B-1) 100 MG TABLET PO SCH (07:51)
--- NOTE | 2018-12-16 08:18 | Internal Med Progress Note ---
Hospitalist Progress Note - Encounter Date of Encounter: 12/16/18 Time of Encounter: 08:06 - Subjective Interval History: Patient seen and examined this morning and better. No acute overnight events. Patient transferred out of ICU. Patient complaining of some cramping in bilateral calf area. Denies any headache, nausea, vomiting or diarrhea. No fur ther episodes of seizures. Denies any difficulty breathing. Has on and off lightheadedness. - Exam Vitals: Temp Pulse Resp BP Pulse Ox 97.5 F L 85 16 77/53 94 12/16/18 07:04 12/16/18 08:00 12/16/18 07:47 12/16/18 07:04 12/16/18 07:47 Exam: General: In no acute distress. Respiratory exam: CTAB. no accessory muscle use, rales, rhonchi, wheezes Cardiovascular exam: RRR, +S1, +S2. no murmur, gallop, rubs. GI/Abdominal exam: Non-tender, Non-distended, normal bowel sounds, soft, no peritoneal signs. Extremities exam: no pedal edema, pulses palpable in b/l lower extremities. no calf tenderness Neurological exam: CN II-XII intact, AO X3, no focal deficits. Skin exam: No skin rash - Summary of Assessment and Plan Summary of Assessment and Plan: Hyponatremia - Multifactorial excessive alcohol intake, water intoxication and HCTZ use. - Nephrology following to manage. Discussed case. Will give IV NS with elevated Scr and hypotension. c/w BMP q4h. - Currently on water restriction. - Psychiatry ok to stop zoloft and increase buspar 15 tid and vistaril 50 tid prn. Willl stop zoloft, LIV - Suspected to be lab error due to several fluctuation. However will give iv Ns at 75 cc due to hypotension for now. Disccused with nephrology. await further input jose. Alcoholism - CIWA protocol to prevent withdrawal. Stop beer. She got one yesterday. - c/w MVI/thiamine/Folate daily. Breast cancer - Outpatient follow up with Oncology. Seizure - No h/o epilepsy. Head CT unremakable - Seizure precautions. prn ativan - Neurology signed off. seizure likely proved by hypontremia, possible alcohol withrawal. No antiepileptic indicated. DVT prophylaxis - Heparin SQ. - Time Spent with Patient Total time spent is greater than 50% in coordination of care (as documented) at patient's floor/unit and/or counseling patient: Internal Medicine: Result - Labs CBC & Chem 7: 12/16/18 05:25 12/16/18 09:17 Labs: Short CBC 12/16/18 Range/Units 05:25 WBC 8.7 (4.3-11.1) K/mcL Hgb 11.0 L (11.5-15.4) g/dL Hct 32.2 L (35.3-44.9) % Plt Count 426 H (140-400) K/mcL Neutrophils # 4.8 (1.6-8.9) K/mcL BMP 12/15/18 12/15/18 12/15/18 07:40 09:40 12:50 Sodium 116 L* 118 L* 120 L* Potassium 4.3 4.2 4.2 Chloride 89 L 91 L 91 L Carbon Dioxide 26 25 24 BUN 15 14 15 Creatinine 1.28 H 1.41 H 1.40 H Glucose 126 H 145 H 157 H Calcium 9.1 8.8 8.7 12/15/18 12/15/18 12/16/18 17:00 21:00 01:10 Sodium 122 L 121 L 124 L Potassium 4.6 4.9 4.5 Chloride 90 L 91 L 94 L Carbon Dioxide 22 L 22 L 23 BUN 17 18 19 Creatinine 1.54 H 1.67 H 1.56 H Glucose 122 H 164 H 181 H Calcium 9.0 8.9 8.7 12/16/18 05:25 Sodium 124 L Potassium 4.7 Chloride 97 L Carbon Dioxide 25 BUN 21 H Creatinine 1.54 H Glucose 139 H Calcium 8.8 Consult Discharge Plan - Plan Referrals: Chalo Encarnacion DO [Non-Partnered Physician] - 01/02/19 3:40 pm NONE,PCP [Primary Care Provider] -
[2018-12-16 09:47] LABS: BUN/Creatinine Ratio 15 (6-26); Blood Urea Nitrogen 17 mg/dL (6-20); Calcium 7.3 mg/dL (8.6-10.3); Carbon Dioxide 21 mEq/L (23-29); Chloride 107 mEq/L (98-107); Glucose 97 mg/dL (70-105); Magnesium 1.8 mg/dL (1.6-2.6); Osmolality,Calculated 273 (280-300); Potassium 3.4 mEq/L (3.5-5.1); Sodium 131 mEq/L (136-145); eGFR For African Americans > 60 (> 60); eGFR For Non-African Americans 50 (> 60)
[2018-12-16] MEDS ORDERED: *HR* LORazepam 2 MG/ML VIAL IVP PRN ×2 (11:19)
[2018-12-16] MEDS ORDERED: 0.9 % Sodium Chloride 1,000 ML IVC SCH (11:30)
[2018-12-16] MEDS ORDERED: hydrOXYzine pamoate 25 MG CAPSULE PO PRN (12:19)
[2018-12-16 16:01] LABS: Magnesium 2.2 mg/dL (1.6-2.6); Potassium 4.6 mEq/L (3.5-5.1)
[2018-12-16] MEDS: Thiamine (B-1) 100 MG, Folic Acid 1 MG, MVI, adult with vitamin K 10 ML in 0.9 % Sodi... IVPB SCH (16:37)
[2018-12-16 17:29] LABS: Calcium 9.1 mg/dL (8.6-10.3); Magnesium 2.1 mg/dL (1.6-2.6)
[2018-12-16 22:17] LABS: Calcium 9.1 mg/dL (8.6-10.3); Potassium 4.8 mEq/L (3.5-5.1)
--- NOTE | 2018-12-16 22:37 | Nephrology Progress Note ---
Date of Encounter: 12/16/18 Time of Encounter: 12:00 - Assessment and Plan (1) Hyponatremia Current Visit: Yes Status: Acute Sodium noted at 131, will stop NS and give D5W bolus at 500cc/hr Continue serial sodium checks Continue sodium in diet (2) Seizure Current Visit: Yes Status: Acute Neurology on board (3) Alcoholism Current Visit: Yes Status: Chronic Withdrawal protocol per primary team Agree with banana bag with MVI, thiamine and folate (4) LIV (acute kidney injury) Current Visit: Yes Status: Acute SCr fluctuating depending on volume status, will monitor Avoid nephrotoxins if possible Subjective Principal diagnosis: seizure/confusion Interval history: Pt seen and examined with at bedside, no new complaints. Mental status at baseline. Objective - Vital Signs Vital signs: Vital Signs Temp Pulse Resp BP Pulse Ox 12/16/18 21:01 97.9 F 86 17 102/57 92 12/16/18 20:58 90 113/68 12/16/18 20:02 16 95 12/16/18 16:20 98.7 F 88 18 113/68 12/16/18 11:26 98.1 F 82 18 106/63 12/16/18 08:00 85 12/16/18 07:47 16 94 12/16/18 07:04 97.5 F L 87 18 77/53 94 12/16/18 06:00 80 90/75 12/16/18 05:30 86 98/66 12/16/18 05:15 86 71/54 12/16/18 05:00 87 82/52 12/16/18 04:30 89 90/54 12/16/18 04:00 91 73/39 12/16/18 03:30 87 74/51 12/16/18 03:19 97.8 F 91 18 78/65 92 12/16/18 03:15 96 78/50 12/15/18 23:42 99.2 F 88 18 105/61 96 Intake and Output 12/16/18 12/16/18 12/16/18 07:59 15:59 23:59 Intake Total 0 / 480 240 / 480 240 / 480 Output Total 100 / 400 300 / 400 Balance 0 / 80 140 / 80 -60 / 80 Intake: Oral 0 / 480 240 / 480 240 / 480 Output: Urine 100 / 400 300 / 400 Other: Meal Lunch Dinner Percent of Meal Consumed 100% 100% Stool Size Moderate Stool Characteristics Normal for Patient Stool Color Brown # Voids 1 # Bowel Movements 1 Blood Glucose* 156 156 155 - General Appearance General appearance: Present: well-developed, well-nourished EENT: Present: ATNC, mucous membranes moist Neck: Present: no JVD, supple Respiratory: Present: clear Cardiology: Present: no edema, normal S1, normal S2 Gastrointestinal: Present: no tenderness, no guarding Integumentary: Present: warm and dry Neurologic: Present: no focal deficit Musculoskeletal: Present: no deformities Psychiatric: Present: mood/affect appropriate, cooperative - Lab 12/16/18 05:25 12/16/18 21:00 Most recent lab results 12/16/18 12/16/18 12/16/18 13:21 16:50 21:00 Calcium 9.0 9.1 9.1 Magnesium 2.2 2.1 2.0 Consult Discharge Plan - Plan Referrals: Chalo Encarnacion DO [Non-Partnered Physician] - 01/02/19 3:40 pm NONE,PCP [Primary Care Provider] -
[2018-12-17 05:22] LABS: Basophils # 0.1 K/mcL (0.0-0.2); Basophils % 0.8 %; Eosinophils # 0.2 K/mcL (0.0-0.6); Eosinophils % 1.3 %; Hematocrit 31.7 % (35.3-44.9); Hemoglobin 10.6 g/dL (11.5-15.4); Immature Granulocytes % 1.2 % (0-4); Lymphocytes # 2.1 K/mcL (0.6-4.6); Lymphocytes % 17.5 %; Mean Corpuscular HGB Conc 33.4 g/dL (31.6-35.5); Mean Corpuscular Hemoglobin 29.2 pg (28.0-33.3); Mean Corpuscular Volume 87.3 fL (83.0-100.0); Mean Platelet Volume 8.7 fL (9.4-12.4); Monocytes # 1.2 K/mcL (0.0-1.3); Monocytes % 9.7 %; Neutrophils # 8.2 K/mcL (1.6-8.9); Platelet Count 432 K/mcL (140-400); Red Blood Count 3.63 M/mcL (3.82-4.97); Red Cell Distribution Width 14.4 % (11.5-14.5); Segmented Neutrophils % 69.5 %; White Blood Count 11.9 K/mcL (4.3-11.1)
[2018-12-17 05:42] LABS: Calcium 9.1 mg/dL (8.6-10.3); Magnesium 1.9 mg/dL (1.6-2.6)
[2018-12-17] MEDS: *HR* Heparin 5,000 UNIT/ML VIAL SQ SCH ×2 (06:27→18:35)
[2018-12-17] MEDS: Budesonide/Formoterol 80/4.5 1 PUFF INH IH SCH ×2 (07:29→20:05)
[2018-12-17] MEDS: Folic Acid 1 MG TABLET PO SCH (08:32)
[2018-12-17] MEDS: Vitamin B Complex/Vit C/Vit E 1 EACH TABLET PO SCH (08:32)
[2018-12-17] MEDS: Thiamine (B-1) 100 MG TABLET PO SCH (08:33)
[2018-12-17] MEDS: Insulin LISPRO 300 UNITS/3 ML VIAL SQ SCH ×3 (08:34→16:27)
--- NOTE | 2018-12-17 09:18 | Internal Med Progress Note ---
Hospitalist Progress Note - Encounter Date of Encounter: 12/17/18 Time of Encounter: 08:17 - Subjective Interval History: Patient seen and examined this morning at bedside. No acute overnight events. Denies new complaints. Feeling generalized soreness. Denies any chest pain difficulty breathing palpitation or lightheadedness or dizziness. Denies any shortness of breath. - Exam Vitals: Temp Pulse Resp BP Pulse Ox 99.0 F 105 16 117/62 95 12/17/18 07:14 12/17/18 07:14 12/17/18 07:31 12/17/18 07:14 12/17/18 07:31 Exam: General: In no acute distress. Respiratory exam: CTAB. no accessory muscle use, rales, rhonchi, wheezes Cardiovascular exam: tachycardic, +S1, +S2. no murmur, gallop, rubs. GI/Abdominal exam: Non-tender, Non-distended, normal bowel sounds, soft, no peritoneal signs. Extremities exam: no pedal edema, pulses palpable in b/l lower extremities. no calf tenderness Neurological exam: CN II-XII intact, AO X3, no focal deficits. Skin exam: No skin rash - Summary of Assessment and Plan Summary of Assessment and Plan: Hyponatremia - Multifactorial excessive alcohol intake, water intoxication and HCTZ use. - Nephrology following to manage. Now normalized. Will give IVF given elevated Scr. Unclear exactly why her Scr is fluctuating. possibly different PO intake. Currently on water restriction. - Psychiatry ok to stop zoloft and increase buspar 15 tid and vistaril 50 tid prn. Tachycardia - Unclear cause. Possible dehydration vs alcohol withdrawal. Will start IVF and monitor. She is not having other signs of withdrawal - Will consider CTA if renal function improve and she continue to be tachycardic after IVF. Leukocytosis - Unclear. oN/off. Likely reactive. aferbile. No source suspected - monitor off antibiotics. LIV - possible lab error due to several fluctuation. However will give iv Ns. Disccused with nephrology. Alcoholism - [facility] protocol to prevent withdrawal. - c/w MVI/thiamine/Folate daily. Breast cancer - Outpatient follow up with Oncology. Seizure - No h/o epilepsy. Head CT unremakable - Seizure precautions. prn ativan - Neurology signed off. seizure likely provoked by hypontremia, possible alcohol withrawal. No antiepileptic indicated. DVT prophylaxis - Heparin SQ. May be able to DC tomorrow if tachycardia resolves and liv improves. - Time Spent with Patient Total time spent is greater than 50% in coordination of care (as documented) at patient's floor/unit and/or counseling patient: Internal Medicine: Result - Labs CBC & Chem 7: 12/17/18 05:05 12/17/18 09:30 Labs: Short CBC 12/17/18 Range/Units 05:05 WBC 11.9 H (4.3-11.1) K/mcL Hgb 10.6 L (11.5-15.4) g/dL Hct 31.7 L (35.3-44.9) % Plt Count 432 H (140-400) K/mcL Neutrophils # 8.2 (1.6-8.9) K/mcL BMP 12/16/18 12/16/18 12/16/18 09:17 13:21 16:50 Sodium 131 L 128 L 129 L Potassium 3.4 L D 4.6 D 5.0 Chloride 107 98 100 Carbon Dioxide 21 L 26 28 BUN 17 21 H 21 H Creatinine 1.11 1.39 H 1.34 H Glucose 97 145 H 170 H Calcium 7.3 L 9.0 9.1 12/16/18 12/17/18 21:00 05:05 Sodium 129 L 134 L Potassium 4.8 5.0 Chloride 102 106 Carbon Dioxide 24 26 BUN 22 H 19 Creatinine 1.49 H 1.21 H Glucose 163 H 131 H Calcium 9.1 9.1 Consult Discharge Plan - Plan Referrals: Chalo Encarnacion DO [Non-Partnered Physician] - 01/02/19 3:40 pm NONE,PCP [Primary Care Provider] -
[2018-12-17 10:15] LABS: Calcium 9.2 mg/dL (8.6-10.3); Magnesium 1.8 mg/dL (1.6-2.6); Potassium 4.6 mEq/L (3.5-5.1)
[2018-12-17] MEDS ORDERED: 0.9 % Sodium Chloride 1,000 ML IVC SCH (13:30)
[2018-12-17] MEDS: *HR* OxyCODONE/APAP 10/325 TABLET PO PRN ×2 (16:33→22:30)
--- NOTE | 2018-12-17 23:35 | Nephrology Progress Note ---
Date of Encounter: 12/17/18 Time of Encounter: 12:00 - Assessment and Plan (1) Hyponatremia Current Visit: Yes Status: Acute Sodium noted at 134, no further intervention necessary Can stop serial sodium checks Continue sodium in diet (2) Seizure Current Visit: Yes Status: Acute Neurology on board (3) Alcoholism Current Visit: Yes Status: Chronic Withdrawal protocol per primary tea was receiving banana bag with MVI, thiamine and folate (4) LIV (acute kidney injury) Current Visit: Yes Status: Acute SCr fluctuating depending on volume status, will monitor Continue to avoid nephrotoxins if possible Encourage po fluids at this point but no more than 2 liters a day Will check urine sodium, creatinine to access volume status Subjective Principal diagnosis: seizure/confusion Interval history: Pt seen and examined with at bedside, no new complaints. Mental status at baseline. Objective - Vital Signs Vital signs: Vital Signs Temp Pulse Resp BP Pulse Ox 12/17/18 20:08 16 97 12/17/18 19:07 98.4 F 103 16 110/73 96 12/17/18 16:12 99.2 F 107 18 120/84 12/17/18 11:08 99.1 F 102 14 106/65 95 12/17/18 07:31 16 95 12/17/18 07:14 99.0 F 105 18 117/62 12/17/18 04:07 99.6 F 116 16 114/69 95 12/17/18 00:15 99 Intake and Output 12/17/18 12/17/18 12/17/18 07:59 15:59 23:59 Intake Total 480 / 1200 480 / 1200 240 / 1200 Output Total 700 / 1900 1200 / 1900 Balance -220 / -700 -720 / -700 240 / -700 Intake: Oral 480 / 720 240 / 720 Free Water 480 / 480 Output: Urine 700 / 1900 1200 / 1900 Other: Meal Lunch Dinner Percent of Meal Consumed 100% 95% Weight 99.5 kg Blood Glucose* 156 151 120 Patient Weight 12/17/18 23:59 Weight 99.5 kg - Lab 12/17/18 05:05 12/17/18 09:30 Consult Discharge Plan - Plan Referrals: Chalo Encarnacion, DO [Non-Partnered Physician] - 01/02/19 3:40 pm NONE,PCP [Primary Care Provider] -
[2018-12-18 04:21] LABS: Basophils # 0.1 K/mcL (0.0-0.2); Basophils % 0.7 %; Eosinophils # 0.2 K/mcL (0.0-0.6); Eosinophils % 1.8 %; Hematocrit 33.3 % (35.3-44.9); Hemoglobin 10.8 g/dL (11.5-15.4); Immature Granulocytes % 0.7 % (0-4); Lymphocytes # 2.7 K/mcL (0.6-4.6); Lymphocytes % 25.8 %; Mean Corpuscular HGB Conc 32.4 g/dL (31.6-35.5); Mean Corpuscular Hemoglobin 28.9 pg (28.0-33.3); Mean Platelet Volume 8.6 fL (9.4-12.4); Monocytes # 1.3 K/mcL (0.0-1.3); Monocytes % 12.1 %; Neutrophils # 6.1 K/mcL (1.6-8.9); Platelet Count 430 K/mcL (140-400); Red Blood Count 3.74 M/mcL (3.82-4.97); Red Cell Distribution Width 14.7 % (11.5-14.5); Segmented Neutrophils % 58.9 %; White Blood Count 10.4 K/mcL (4.3-11.1)
[2018-12-18 04:48] LABS: BUN/Creatinine Ratio 12 (6-26); Blood Urea Nitrogen 13 mg/dL (6-20); Calcium 9.4 mg/dL (8.6-10.3); Carbon Dioxide 22 mEq/L (23-29); Chloride 115 mEq/L (98-107); Glucose 128 mg/dL (70-105); Osmolality,Calculated 302 (280-300); Potassium 4.6 mEq/L (3.5-5.1); Sodium 145 mEq/L (136-145); eGFR For African Americans > 60 (> 60); eGFR For Non-African Americans 50 (> 60)
[2018-12-18] MEDS: *HR* OxyCODONE/APAP 10/325 TABLET PO PRN (05:19)
[2018-12-18] MEDS: *HR* Heparin 5,000 UNIT/ML VIAL SQ SCH (05:20)
[2018-12-18 05:53] LABS: Sodium, Urine 39.8 mEq/L
[2018-12-18] MEDS: Budesonide/Formoterol 80/4.5 1 PUFF INH IH SCH (07:41)
[2018-12-18] MEDS: Vitamin B Complex/Vit C/Vit E 1 EACH TABLET PO SCH (08:03)
[2018-12-18] MEDS: Thiamine (B-1) 100 MG TABLET PO SCH (08:03)
[2018-12-18] MEDS: Folic Acid 1 MG TABLET PO SCH (08:03)
[2018-12-18] MEDS: Insulin LISPRO 300 UNITS/3 ML VIAL SQ SCH (08:15)
--- NOTE | 2018-12-18 10:17 | Discharge Summary ---
- NOTES TO OUTPATIENT PROVIDER Notes to Outpatient Provider: Post hospital discharge for acute encephalopathy, acute hyponatremia attributed to chronic alcoholism. Patient will benefit from out patient treatment for her alcoholism. Patient was also noted to be diabetic A1c was 6.5 she was started on Januvia since she presented with acute kidney injury if kidney function stabilized she might benefit from addition of metformin Date of Encounter: 12/18/18 Time of Encounter: 10:14 - Discharge Diagnosis (1) Acute encephalopathy Priority: Primary Status: Acute Assessment and Plan: likely metabolic from her acute hyponatremia. Resolved. (2) Hyponatremia Priority: Primary Status: Acute Assessment and Plan: Secondary to her chronic alcoholism, free water binges and overall poor oral intake. high threshold for beer proteinemia. Resolved gradually trended up and 145 at discharge. (3) Diabetes type 2, uncontrolled Priority: Primary Status: Acute Assessment and Plan: Patient was noted to be diabetic based on A1c of 6.5, she was started on Januvia since she presented with acute kidney injury if kidney function stabilized she might benefit from addition of metformin Qualifiers: Coma presence: without coma Qualified Code(s): E11.649 - Type 2 diabetes mellitus with hypoglycemia without coma (4) Macrocytic anemia Priority: Primary Status: Acute Assessment and Plan: Suspect secondary to her chronic alcoholism we will discharge on B12 and thiamine supplements (5) LIV (acute kidney injury) Priority: Primary Status: Acute Assessment and Plan: Resolved likely prerenal from intravascular volume depletion. Scr at discharge 1.11 (6) Seizure Priority: Secondary Status: Acute Assessment and Plan: No documented seizure activity during this hospital stay (7) Alcoholism Priority: Primary Status: Chronic Assessment and Plan: Patient reports drinking up to 15 beers daily does admit to be an alcoholic. Discussed with patient that she might benefit from an outpatient treatment she will need to follow-up with primary care physician (8) Obesity (BMI 30-39.9) Priority: Primary Status: Acute Assessment and Plan: Continue to encourage lifestyle modification diet and exercise (9) DVT prophylaxis Priority: Secondary Status: Acute Assessment and Plan: We will discharge today Hospital course: Ms. Onur Morrison is a 58 year old female she was hospitalized for acute encephalopathy attributed to acute hyponatremia which was due to her chronic alcoholism. She was treated for hyponatremia and her sodium gradually trended up. His acute encephalopathy was transient and resolved. Also during this hospital stay, Patient was also noted to be diabetic A1c was 6.5 she was started on Januvia since she presented with acute kidney injury if kidney function stabilized she might benefit from addition of metformin Discharge discussed with: patient - Time Spent with Patient Total time spent providing and/or coordinating discharge services: 29 mins Specific discharge activities: Please take all medications as prescribed, as discussed make sure you follow up with her primary care doctor to discuss treatment options for chronic alcoholism. Try to quit tobacco use and cut back alcoholic beverages to just 1-2 beers daily. Follow up with PCP withing 2 weeks - Discharge Medications Prescriptions: New Buspirone HCl [Buspar] 15 mg PO TID #90 tablet Folic Acid 1 mg PO DAILY #30 tablet Sitagliptin Phosphate [Januvia] 50 mg PO QDPC #30 tab Nicotine Patch [Nicoderm] 21 mg TD DAILY PRN #30 patch.td24 PRN Reason: Cravings Omeprazole [PriLOSEC] 20 mg PO QAM #30 capsule. Vitamin B Complex/Vit C/Vit E [Stresstab] 1 each PO DAILY #30 tablet hydrOXYzine pamoate [Vistaril] 50 mg PO TID PRN 30 Days #180 capsule PRN Reason: Anxiety Thiamine (B-1) [Vitamin B-1] 100 mg PO DAILY #30 tablet Lisinopril [Zestril] 20 mg PO DAILY #30 tablet Continued Fluconazole [Diflucan] 100 mg PO DAILY Budesonide/Formoterol 80/4.5 [Symbicort 80/4.5] 2 puff IH BID Discontinued Lisinopril-HCTZ 20-12.5 [Prinzide 20-12.5] 1 tab PO DAILY Sertraline [Zoloft] 100 mg PO DAILY hydrOXYzine HCl [Hydroxyzine HCl] 25 mg PO TID PRN PRN Reason: Anxiety Buspirone HCl [Buspar] 10 mg PO TID Home Medications: Budesonide/Formoterol 80/4.5 [Symbicort 80/4.5] 2 puff IH BID 12/13/18 [History] Fluconazole [Diflucan] 100 mg PO DAILY 12/13/18 [History] Buspirone HCl [Buspar] 15 mg PO TID #90 tablet 12/18/18 [Rx] Folic Acid 1 mg PO DAILY #30 tablet 12/18/18 [Rx] Lisinopril [Zestril] 20 mg PO DAILY #30 tablet 12/18/18 [Rx] Nicotine Patch [Nicoderm] 21 mg TD DAILY PRN #30 patch.td24 12/18/18 [Rx] Omeprazole [PriLOSEC] 20 mg PO QAM #30 capsule. 12/18/18 [Rx] Sitagliptin Phosphate [Januvia] 50 mg PO QDPC #30 tab 12/18/18 [Rx] Thiamine (B-1) [Vitamin B-1] 100 mg PO DAILY #30 tablet 12/18/18 [Rx] Vitamin B Complex/Vit C/Vit E [Stresstab] 1 each PO DAILY #30 tablet 12/18/18 [Rx] hydrOXYzine pamoate [Vistaril] 50 mg PO TID PRN 30 Days #180 capsule 12/18/18 [Rx] Allergies/Adverse Reactions: Allergy/AdvReac Type Severity Reaction Status Date / Time acetaminophen [From Vicodin] Allergy Rash Verified 12/13/18 19:16 codeine Allergy Hives Verified 12/13/18 21:36 hydrocodone [From Vicodin] Allergy Rash Verified 12/13/18 19:16 ibuprofen AdvReac Nausea Verified 12/13/18 21:36 Date of admission: 12/13/18 18:03 Primary care physician: PCP NONE Consults: 12/13/18 17:34 Consult to Neurology [CONS] Stat Consulting Provider: [facility] Reason for Consult: First time seizure Time Notified: 17:35 Call Completed: Yes 12/13/18 19:41 Consult to Nephrology [CONS] Stat Consulting Provider: [facility]LEYDI[facility]ELI Reason for Consult: hyponatremia in alcoholic Time Notified: 17:53 Call Completed: Yes 12/15/18 07:53 Consult to Psychiatry [CONS] Routine Consulting Provider: Psychiat[facility] [place] Reason consult: Medication recommendation Other reason and/or additional details: psychogenic polydipsia Discharging clinician: Johnnie Sandoval Anticipated date of discharge: 12/18/18 - Constitutional Vitals: Temp Pulse Resp BP Pulse Ox 98.3 F 97 16 111/74 92 12/18/18 06:20 12/18/18 06:20 12/18/18 06:20 12/18/18 06:20 12/18/18 06:20 Exam: GEN: Obese female NAD, A&O x 3, Pleasant and conversant SKIN: [place] warm acyanotic not jaundice HEART: RRR, no murmurs LUNGS: CTA no wheeze or crackles, overall non labored ABDOMEN; Soft, non tender or distended, BS x 4 normactive EXT: No LE edema, Pedal pulses 1+, radial pulses 2+ PSYCH: Mood and affect is appropriate - Patient Status Disposition: Home, Self-Care Condition: Fair Functional capacity at discharge: independent ambulation Overall status at discharge: patient is back to baseline - Discharge Instructions Instructions: Anemia (GEN), Diabetes Mellitus Type 2 in Adults (DC) Follow Up With: Chalo Encarnacion DO [Non-Partnered Physician] - 01/02/19 3:40 pm NONE,PCP [Primary Care Provider] - Forms: ED Satisfaction Letter Additional Instructions: Please take all medications as prescribed, as discussed make sure you follow up with her primary care doctor to discuss treatment options for chronic alcoholism. Try to quit tobacco use and cut back alcoholic beverages to just 1-2 beers daily - Diet and Activity Activity: resume usual activities as tolerated Diet: diabetic diet, low fat, low cholesterol
[2018-12-18 10:35] VITALS: BP 123/80
[2018-12-18] MEDS ORDERED: FLU Vac QV 19-20 (6Month+)/PF 0.5 ML SYRINGE IM ONE (11:14)
== END 2018-12-18 12:34 | disposition home or self-care (01) | DRG 640 ==
LOC: EMEROOARM 14:40 → SUATTDRO 18:03 → ICNU 18:03 → 2NNU 12-15 16:21 → 3ANU 12-17 19:27
PROVIDERS: ADMIT Pediatrics; ATTEND Pharmacist

== ENCOUNTER 2019-01-10 15:58 | Observation (INO) ==
[2019-01-10 16:28] LABS: Mean Corpuscular HGB Conc 33.3 g/dL (31.6-35.5); Mean Corpuscular Hemoglobin 29.7 pg (28.0-33.3); Mean Corpuscular Volume 89.1 fL (83.0-100.0); Mean Platelet Volume 9.2 fL (9.4-12.4); Platelet Count 530 K/mcL (140-400); Red Blood Count 5.05 M/mcL (3.82-4.97); Red Cell Distribution Width 14.4 % (11.5-14.5); White Blood Count 11.9 K/mcL (4.3-11.1)
[2019-01-10 16:35] LABS: Prothrombin Time 10.9 Seconds (9.4-12.1)
[2019-01-10 16:37] LABS: Activated Partial Thrombo Time 33.6 Seconds (26.0-36.0)
[2019-01-10 16:51] LABS: Amphetamine Screen,Urine Negative ng/mL (Cutoff=1000); Barbiturate Screen,Urine Negative ng/mL (Cutoff=200); Benzodiazepines Screen,Urine Negative ng/mL (Cutoff=200); Cannabinoid Screen,Urine Negative ng/mL (Cutoff = 50); Cocaine Screen,Urine Negative ng/mL (Cutoff= 300); Opiate Screen,Urine Negative ng/mL (Cutoff=300); Phencyclidine Screen,Urine Negative ng/mL (Cutoff=25)
[2019-01-10 16:58] LABS: Bilirubin,Urine Negative (Negative); Blood,Urine Negative (Negative); Clarity,Urine Cloudy (Clear); Color,Urine Yellow (Yellow); Glucose,Urine (UA) Normal (Normal); Ketones,Urine Negative (Negative); Leukocyte Esterase,Urine Large (Negative); Nitrite,Urine Negative (Negative); Protein,Urine Negative (Neg-Trace); Specific Gravity,Urine 1.006 (1.010-1.025); Urobilinogen,Urine Normal (Normal)
[2019-01-10 17:01] LABS: Bacteria,Urine Moderate per hpf (None-Few); Hyaline Casts,Urine None Seen per lpf (None-Few); RBC,Urine 0-3 per hpf (0-3); Squamous Epithelial Cell,Urine Many per lpf (None-Few); WBC,Urine 50-100 per hpf (0-3)
[2019-01-10 17:18] LABS: Acetaminophen < 10 mcg/mL (10-20); BUN/Creatinine Ratio 6 (6-26); Blood Urea Nitrogen 8 mg/dL (6-20); Calcium 9.7 mg/dL (8.6-10.3); Carbon Dioxide 19 mEq/L (23-29); Chloride 103 mEq/L (98-107); Ethanol < 10 mg/dL (Less than 10); Glucose 122 mg/dL (70-105); Osmolality,Calculated 276 (280-300); Potassium 4.6 mEq/L (3.5-5.1); Salicylate < 2.5 mg/dL (15.0-30.0); Sodium 133 mEq/L (136-145); Troponin I < 0.03 ng/mL (< 0.04); eGFR For African Americans 51 (> 60); eGFR For Non-African Americans 42 (> 60)
[2019-01-10] MEDS ORDERED: cefTRIAXone 1,000 MG in Water for inj. (sterile) 10 ML IVP ONE (17:51)
[2019-01-10] MEDS ORDERED: Aspirin 81 MG TAB.CHEW PO STA (17:52)
[2019-01-10] MEDS ORDERED: 0.9 % Sodium Chloride 1,000 ML IVC ONE (18:23)
[2019-01-10] MEDS ORDERED: Naloxone 0.4 MG/ML INJ IVP PRN (22:19)
[2019-01-10] MEDS ORDERED: Ondansetron ODT 4 MG TAB.RAPDIS SL PRN (22:19)
[2019-01-10] MEDS ORDERED: hydrOXYzine pamoate 25 MG CAPSULE PO PRN (22:22)
[2019-01-11] MEDS ORDERED: *HR* Dextrose 50 % in Water (Syg) 50 ML SYRINGE IVP PRN (00:28)
[2019-01-11] MEDS ORDERED: D5% in Water 1,000 ML IVC PRN (00:28)
[2019-01-11] MEDS ORDERED: Dextrose Gel 15 GM/37.5 ML TUBE PO PRN ×2 (00:28)
[2019-01-11 05:45] LABS: Basophils # 0.1 K/mcL (0.0-0.2); Basophils % 0.6 %; Eosinophils # 0.2 K/mcL (0.0-0.6); Eosinophils % 1.9 %; Hematocrit 40.1 % (35.3-44.9); Hemoglobin 13.7 g/dL (11.5-15.4); Immature Granulocytes % 0.8 % (0-4); Lymphocytes # 2.9 K/mcL (0.6-4.6); Lymphocytes % 30.4 %; Mean Corpuscular HGB Conc 34.2 g/dL (31.6-35.5); Mean Corpuscular Hemoglobin 29.8 pg (28.0-33.3); Mean Corpuscular Volume 87.2 fL (83.0-100.0); Monocytes # 0.7 K/mcL (0.0-1.3); Neutrophils # 5.6 K/mcL (1.6-8.9); Platelet Count 493 K/mcL (140-400); Red Cell Distribution Width 14.6 % (11.5-14.5); Segmented Neutrophils % 59.3 %; White Blood Count 9.5 K/mcL (4.3-11.1)
[2019-01-11 06:08] LABS: % Iron Saturation 13 % (15-50); Calcium 9.3 mg/dL (8.6-10.3); Chol/HDL Ratio 4.6 (0-4.9); Iron 38 mcg/dL (50-170); Potassium 4.1 mEq/L (3.5-5.1); Transferrin 207 mg/dL (203-362)
[2019-01-11] MEDS: Budesonide/Formoterol 80/4.5 1 PUFF INH IH SCH ×2 (08:21→22:48)
[2019-01-11] MEDS ORDERED: Lisinopril 20 MG TABLET PO SCH (09:00)
[2019-01-11] MEDS: Insulin LISPRO 300 UNITS/3 ML VIAL SQ SCH ×3 (09:27→16:56)
[2019-01-11] MEDS: Nicotine 7 MG PATCH.TD24 TD SCH (11:13)
[2019-01-11] MEDS: Aspirin Enteric Coated 81 MG Tablet PO SCH (11:13)
[2019-01-11] MEDS: Folic Acid 1 MG TABLET PO SCH (11:13)
[2019-01-11] MEDS: Letrozole 2.5 MG TABLET PO SCH (11:13)
[2019-01-11] MEDS: cefTRIAXone 1,000 MG in Water for inj. (sterile) 10 ML IVP SCH (11:15)
[2019-01-11] MEDS: Acetaminophen 325 MG TABLET PO PRN ×2 (13:23→20:26)
[2019-01-11] MEDS: *HR* Heparin 5,000 UNIT/ML VIAL SQ SCH (17:22)
[2019-01-11] MEDS ORDERED: Insulin LISPRO 300 UNITS/3 ML VIAL SQ SCH (21:00)
[2019-01-11] MEDS ORDERED: Thiamine (B-1) 100 MG TABLET PO SCH (21:00)
[2019-01-11] MEDS ORDERED: traMADol 50 MG TABLET PO ONE (23:16)
[2019-01-12] MEDS: *HR* Heparin 5,000 UNIT/ML VIAL SQ SCH (05:02)
[2019-01-12 07:44] VITALS: BP 125/78
[2019-01-12] MEDS: Budesonide/Formoterol 80/4.5 1 PUFF INH IH SCH (08:12)
[2019-01-12] MEDS: Aspirin Enteric Coated 81 MG Tablet PO SCH (08:21)
[2019-01-12] MEDS: cefTRIAXone 1,000 MG in Water for inj. (sterile) 10 ML IVP SCH (08:21)
[2019-01-12] MEDS: Letrozole 2.5 MG TABLET PO SCH (08:21)
[2019-01-12] MEDS: Folic Acid 1 MG TABLET PO SCH (08:21)
[2019-01-12] MEDS: Nicotine 7 MG PATCH.TD24 TD SCH (08:21)
[2019-01-12] MEDS: Insulin LISPRO 300 UNITS/3 ML VIAL SQ SCH (08:22)
== END 2019-01-12 09:17 | disposition home or self-care (01) ==
LOC: EMEROOARM 15:58 → 3BNU 15:58
PROVIDERS: ADMIT Internal Medicine; ATTEND Internal Medicine